=== PATIENT | female | born 1975 | race Caucasian/White ===

== ENCOUNTER → 2016-11-23 | Outpatient (CLI) | payer BC ==
[2016-11-23 16:19] VITALS: BP 116/82; PULSE 82; RESP 16; TEMP 97.6; BMI 36.1
--- NOTE | 2017-01-09 09:38 | PN ---
DATE OF SERVICE: 11/23/2016 CHIEF COMPLAINT: Followup sleeve gastrectomy. HISTORY OF PRESENT ILLNESS: Zoraida Hagen is a 41-year-old female who is status post sleeve gastrectomy on 09/29/2016. She is approximately 2 months out. She is off all her medication regarding to her blood pressure. Her joints are doing well. In fact her persistent tachycardia is completely resolved. At her height of 5 feet 4 inches her ideal body weight is 144 pounds. Her initial weight was 260 pounds. Today she comes in weighing 213 pounds. She has lost 47 pounds in 2 months. Percent excess weight loss is 41%. Body mass index is reduced from 44.7 down to 36.6. Total BMI point reduction is 8.1. PHYSICAL EXAM: VITAL SIGNS: 97.6, 82, 16, 116/82, 213 pounds. Body mass index 36.6. CARDIOVASCULAR: Regular rate and rhythm. ABDOMEN: Abdomen is soft, nontender, nondistended. No hernias. GENERAL: Well-developed female in no acute distress. HEENT: No scleral icterus. Extraocular movements grossly intact. NECK: Supple without lymphadenopathy. CHEST: Nonlabored respirations with equal bilateral excursions. MUSCULOSKELETAL: No acute clubbing, cyanosis or edema. Lumbar tenderness noted. NEURO: No focal or lateralizing signs. Cranial nerves 2-12 grossly intact. PSYCH: Appropriate affect. Alert and oriented to person, place and time. ASSESSMENT: 1. Morbid obesity due to excess calories. 2. Body mass index reduced from 44.7 down to 36.6. 3. Status post sleeve gastrectomy. 4. Supraventricular tachycardia, resolved. 5. Hypertensive heart disease, resolved. 6. Gastroesophageal reflux disease, resolved. PLAN: 1. Overall, she is doing extremely well on her 2 month visit. 2. Recommend bariatric metabolic panel at least 3 months out. 3. Recommend followup in approximately 3 to 4 months postop. [facility]
== END | disposition home or self-care (01) ==
LOC: BARWHC3 15:37
PROVIDERS: ATTEND Surgery Plastic and Reconstructive Surgery
DX: Z48.815 Encounter for surgical aftercare following surgery on the digestive system (principal); Z71.3 Dietary counseling and surveillance; E66.01 Morbid (severe) obesity due to excess calories; E21.1 Secondary hyperparathyroidism, not elsewhere classified; E86.1 Hypovolemia; D50.8 Other iron deficiency anemias; E44.0 Moderate protein-calorie malnutrition; E55.9 Vitamin D deficiency, unspecified; K74.1 Hepatic sclerosis; N19 Unspecified kidney failure; K50.90 Crohn's disease, unspecified, without complications; Z98.84 Bariatric surgery status; Z68.36 Body mass index [BMI] 36.0-36.9, adult
CPT/HCPCS: 99211

== ENCOUNTER → 2016-11-25 | Outpatient (CLI) | payer BC ==
[2016-11-25 08:07] LABS: Basophils % (A) 1 %; CH 28.2; CHCM 32.6; Eosinophils # (A) 0.2 k/uL (0-0.7); Eosinophils % (A) 3 %; HCT 43.1 % (34.0-46.0); HDW 2.66; HGB 13.8 gm/dL (11.4-16.0); Luc # (Auto) 0.16; Luc % (Auto) 2; Lymphocytes # (A) 2.1 k/uL (1.0-4.8); Lymphocytes % (A) 33 %; MCH 27.8 pg (25.0-35.0); MCHC 31.9 g/dL (31.0-37.0); Mean Platelet Volume 9.9; Monocytes # (A) 0.3 k/uL (0-1.0); Monocytes % (A) 5 %; Neutrophils # (A) 3.8 k/uL (1.3-7.7); Neutrophils % (A) 58 %; RBC 4.95 m/uL (3.80-5.40); RDW 13.6 % (11.5-15.5); WBC 6.6 k/uL (3.8-10.6); WBC (Perox) 6.97
[2016-11-25 08:12] LABS: Partial Thromboplastin Time 26.2 sec (22.0-30.0); Prothrombin Time 10.5 sec (9.0-12.0)
[2016-11-25 11:10] LABS: ALT 60 U/L (9-52); AST 33 U/L (14-36); Alkaline Phosphatase 87 U/L (38-126); Anion Gap 9 mmol/L; Blood Urea Nitrogen 15 mg/dL (7-17); Calcium 9.3 mg/dL (8.4-10.2); Carbon Dioxide 29 mmol/L (22-30); Chloride 103 mmol/L (98-107); Cholesterol 176 mg/dL (<200); Glucose 104 mg/dL (74-99); HDL Cholesterol 46 mg/dL (40-60); Iron 51 ug/dL (37-170); Magnesium 1.8 mg/dL (1.6-2.3); Non-African American GFR(MDRD) >60 (>60 ml/min/1.73 sqM); Phosphorous 4.5 mg/dL (2.5-4.5); Potassium 3.7 mmol/L (3.5-5.1); Sodium 141 mmol/L (137-145); Total Bilirubin 0.7 mg/dL (0.2-1.3); Total Protein 6.9 g/dL (6.3-8.2); Triglycerides 128 mg/dL (<150)
[2016-11-25 11:21] LABS: % Iron Saturation 15.7 % (20-50); Prealbumin 14 mg/dL (18-36); Total Iron Binding Capacity 324 ug/dL (265-497)
[2016-11-25 12:20] LABS: Vitamin B12 445 pg/mL (239-931)
[2016-11-25 13:53] LABS: Hemoglobin A1C 6.5 % (4.2-6.1)
[2016-11-30 14:09] LABS: Selenium 83 mcg/L (63-160)
== END | disposition home or self-care (01) ==
LOC: LABWHC1 07:03
PROVIDERS: ATTEND Surgery Plastic and Reconstructive Surgery
DX: E66.01 Morbid (severe) obesity due to excess calories (principal); E21.1 Secondary hyperparathyroidism, not elsewhere classified; E89.1 Postprocedural hypoinsulinemia; D50.8 Other iron deficiency anemias; K90.89 Other intestinal malabsorption; E44.0 Moderate protein-calorie malnutrition; E55.9 Vitamin D deficiency, unspecified; K74.1 Hepatic sclerosis; N19 Unspecified kidney failure; K50.90 Crohn's disease, unspecified, without complications
CPT/HCPCS: 36415; 80053; 80061; 82306; 82525; 82607; 82728; 82746; 83036; 83540; 83550; 83735; 83970; 84100; 84134; 84255; 84425; 84443; 84590; 84630; 85025; 85610; 85730

== ENCOUNTER → 2017-01-11 | Outpatient (CLI) | payer BC ==
[2017-01-11 16:35] VITALS: BP 100/62; PULSE 71; TEMP 98.1; BMI 34.4
--- NOTE | 2017-02-13 17:18 | P.PN ---
Progress Note - Text DATE OF SERVICE: 01/11/2017. CHIEF COMPLAINT: Bariatric assessment. HISTORY OF PRESENT ILLNESS: Zoraida Hagen is a 41-year-old female who is status post sleeve gastrectomy on 10/04/2016. She is now a little over 3 months out. For her height of 5 feet 4 inches, her ideal body weight is 144 pounds. Her highest weight was 358 pounds. Today she comes in weighing 200 pounds. She has lost 58 pound in a little over 3 months. Percent excess weight loss is 61%. She has lost another 13 pounds since her last visit a month ago. Body mass index is reduced from 44.4 down to 34.4. Total BMI point reduction is 10 points. She is now 56 pounds overweight. She denies any increased gastroesophageal reflux disease. She reports moderate amount of energy. PAST MEDICAL HISTORY: 1. Depression. 2. Morbid obesity. 3. Vitamin D deficiency. 4. Anxiety. 5. Restless leg syndrome. 6. Osteoarthritis of the bilateral hips. 7. Osteoarthritis of the bilateral knees. 8. Anxiety and depression. 9. Sleeve gastrectomy. 10. Diabetes type II, non-insulin dependent. PAST SURGICAL HISTORY: 1. Umbilical hernia repair. 2. . 3. Cholecystectomy. 4. Tubal ligation. 5. D and C. 6. Cyst removal from the vagina. 7. Status post sleeve gastrectomy. MEDICATIONS: 1. Calcium. 2. Multivitamin. 3. Effexor. 4. Mirapex. 5. Omeprazole. 6. Zyrtec. 7. Alprazolam. ALLERGIES: ASPIRIN. SOCIAL HISTORY: Daily smoker. FAMILY HISTORY: Denies any esophageal, stomach or colon cancer. Pertinent for myocardial infarction, including lung cancer. REVIEW OF SYSTEMS: CONSTITUTIONAL: [place] body weight of 144 pounds. Highest weight of 268 pounds. She has lost 58 pounds. Percent excess weight loss is 51%. MUSCULOSKELETAL: She reports improvement of her diffuse joint pain, including of the lumbar back and bilateral hips and knees. RESPIRATORY: Reports improvement of obstructive sleep apnea. GASTROINTESTINAL: She reports no moderate gastroesophageal reflux disease. CARDIOVASCULAR: She has resolution of her previous tachycardia, which is now resolved. HEENT: Denies any troubles with her vision or hearing. No dysphagia. ENDOCRINE: No reports of thyroid disorder. Has diabetes. NEURO: No reports of stroke or seizure disorders. PSYCH: History of depression, including anxiety. HEMATOLOGIC: No reports of easy bruising or bleeding. PHYSICAL EXAM: VITAL SIGNS: 98.1, 71, 100/62; 5 feet 4 inches, 200 pounds. Body mass index of 34.4. ABDOMEN: Soft, nontender, nondistended. No palpable incisional hernias. GENERAL: Well-developed female in no acute distress. CARDIOVASCULAR: Regular rate and regular rhythm. HEENT: No scleral icterus. Extraocular movements grossly intact. NECK: Supple without lymphadenopathy. CHEST: Nonlabored respirations with equal bilateral excursions. MUSCULOSKELETAL: No acute clubbing, cyanosis or edema. Lumbar tenderness noted. NEURO: No focal or lateralizing signs. Cranial nerves 2-12 grossly intact. PSYCH: Appropriate affect. Alert and oriented to person, place and time. LABS: Bariatric labs reviewed with hemoglobin normal at 13.8. Glucose was slightly elevated at 104. Hemoglobin A1c was elevated at 6.5. However, improved from 7.8. Percent iron saturation is low at 15.7. ALT elevated at 60. Prealbumin was low at 14. LDL was elevated at 104. Vitamin A was very low at 27. ASSESSMENT: 1. Morbid obesity due to excess calories. 2. Body mass index reduced from 44.4 down to 34.4. 3. Diabetes type 2, [id number] improved. 4. Elevated liver enzymes, ALT. 5. Hypertriglyceridemia. 6. Vitamin D deficiency. 7. Tobacco use, in remission. 8. Osteoarthritis of the lumbar area, secondary to morbid obesity, improved. 9. Osteoarthritis of the bilateral hips, secondary to morbid obesity, improved. 10. Osteoarthritis of the knees, secondary to morbid obesity, improved. 11. Dietary surveillance and counseling. 12. Obstructive sleep apnea, resolved. 13. Anxiety. 14. Depression. 15. Status post sleeve gastrectomy. 16. Tachycardia resolved. 17. Vitamin A deficiency. 18. Gastroesophageal reflux disease. PLAN: 1. She reports that most of her symptoms of osteoarthritis is moderately improved. 2. Recommend vitamin A supplement 8000 units daily. 3. Goal protein intake of over 70 grams was advised daily. 4. Hemoglobin A1C is improving and with her high protein, low caloric diet we will closely monitor her hemoglobin A1c. At this point, she discontinued all forms of diabetic medications. 5. Recommend bariatric metabolic panel ideally at her 6 month loki; otherwise for March 2017. She was advised to follow-up sooner should she have any further issues. 6. Omeprazole 40 mg daily was continued.
== END | disposition home or self-care (01) ==
LOC: BARWHC3 15:19
PROVIDERS: ATTEND Surgery Plastic and Reconstructive Surgery
DX: Z48.815 Encounter for surgical aftercare following surgery on the digestive system (principal); E66.01 Morbid (severe) obesity due to excess calories; Z68.34 Body mass index [BMI] 34.0-34.9, adult; Z71.3 Dietary counseling and surveillance; E11.9 Type 2 diabetes mellitus without complications; R74.8 Abnormal levels of other serum enzymes; E78.1 Pure hyperglyceridemia; E55.9 Vitamin D deficiency, unspecified; F17.200 Nicotine dependence, unspecified, uncomplicated; M47.896 Other spondylosis, lumbar region; M16.0 Bilateral primary osteoarthritis of hip; M17.0 Bilateral primary osteoarthritis of knee; F41.9 Anxiety disorder, unspecified; F32.9 Major depressive disorder, single episode, unspecified; E50.9 Vitamin A deficiency, unspecified; K21.9 Gastro-esophageal reflux disease without esophagitis; Z98.84 Bariatric surgery status; Z88.8 Allergy status to other drugs, medicaments and biological substances; Z79.899 Other long term (current) drug therapy
CPT/HCPCS: 97803; 99211

== ENCOUNTER → 2017-03-22 | Outpatient (CLI) | payer BC ==
[2017-03-22 16:45] VITALS: BP 123/79; PULSE 88; BMI 31.4
== END | disposition home or self-care (01) ==
LOC: BARWHC3 15:21
PROVIDERS: ATTEND Surgery Plastic and Reconstructive Surgery
DX: Z48.815 Encounter for surgical aftercare following surgery on the digestive system (principal); Z71.3 Dietary counseling and surveillance; E66.01 Morbid (severe) obesity due to excess calories; Z68.31 Body mass index [BMI] 31.0-31.9, adult; Z98.84 Bariatric surgery status; E21.1 Secondary hyperparathyroidism, not elsewhere classified; E89.1 Postprocedural hypoinsulinemia; D50.8 Other iron deficiency anemias; E44.1 Mild protein-calorie malnutrition; E55.9 Vitamin D deficiency, unspecified; K74.1 Hepatic sclerosis; T56.894A Toxic effect of other metals, undetermined, initial encounter; K90.9 Intestinal malabsorption, unspecified
CPT/HCPCS: 97803; 99211

== ENCOUNTER → 2017-03-29 | Outpatient (CLI) | payer BC ==
[2017-03-29 08:10] LABS: CH 28.5; CHCM 32.6; HDW 2.33; HGB 13.4 gm/dL (11.4-16.0); MCH 27.9 pg (25.0-35.0); MCHC 31.8 g/dL (31.0-37.0); MCV 87.8 fL (80.0-100.0); Mean Platelet Volume 8.7; RBC 4.79 m/uL (3.80-5.40); RDW 13.2 % (11.5-15.5); WBC 7.3 k/uL (3.8-10.6)
[2017-03-29 08:19] LABS: Partial Thromboplastin Time 24.7 sec (22.0-30.0); Prothrombin Time 10.3 sec (9.0-12.0)
[2017-03-29 10:49] LABS: ALT 33 U/L (9-52); AST 17 U/L (14-36); Alkaline Phosphatase 81 U/L (38-126); Anion Gap 10 mmol/L; Blood Urea Nitrogen 15 mg/dL (7-17); Calcium 9.1 mg/dL (8.4-10.2); Carbon Dioxide 25 mmol/L (22-30); Chloride 107 mmol/L (98-107); Cholesterol 191 mg/dL (<200); Glucose 100 mg/dL (74-99); HDL Cholesterol 51 mg/dL (40-60); Iron 64 ug/dL (37-170); Magnesium 1.9 mg/dL (1.6-2.3); Non-African American GFR(MDRD) >60 (>60 ml/min/1.73 sqM); Potassium 4.1 mmol/L (3.5-5.1); Sodium 142 mmol/L (137-145); Total Bilirubin 0.5 mg/dL (0.2-1.3); Total Protein 6.8 g/dL (6.3-8.2); Triglycerides 116 mg/dL (<150)
[2017-03-29 11:02] LABS: % Iron Saturation 17.3 % (20-50); Prealbumin 18 mg/dL (18-36); Total Iron Binding Capacity 369 ug/dL (265-497)
[2017-03-29 11:59] LABS: Vitamin B12 253 pg/mL (239-931)
[2017-04-05 13:26] LABS: Selenium 128 mcg/L (63-160)
== END | disposition home or self-care (01) ==
LOC: LABWHC1 07:27
PROVIDERS: ATTEND Surgery Plastic and Reconstructive Surgery
DX: E89.1 Postprocedural hypoinsulinemia (principal); D50.8 Other iron deficiency anemias; K90.89 Other intestinal malabsorption; E55.9 Vitamin D deficiency, unspecified; K74.1 Hepatic sclerosis; T56.894A Toxic effect of other metals, undetermined, initial encounter; R63.3 Feeding difficulties; Z98.890 Other specified postprocedural states
CPT/HCPCS: 36415; 80053; 80061; 82306; 82525; 82607; 82728; 82746; 83036; 83540; 83550; 83735; 83970; 84100; 84134; 84255; 84425; 84443; 84590; 84630; 85027; 85610; 85730

== ENCOUNTER → 2017-06-15 | Outpatient (CLI) | payer BC ==
[2017-06-15 10:57] VITALS: BP 136/85; PULSE 94; RESP 16; BMI 28.8
--- NOTE | 2017-07-08 22:06 | P.PN ---
Progress Note - Text DATE OF SERVICE: 06/15/2017. CHIEF COMPLAINT: Bariatric assessment. HISTORY OF PRESENT ILLNESS: Zoraida Hagen is a 4-1year-[age] female who is status post sleeve gastrectomy on 10/04/2016. She is now 9 months out. For her height of 5 feet 4 inches, her ideal body weight is 144 pounds. Her highest weight was 258 pounds. Today she comes in weighing 170 pounds. She has lost 88 pound lifetime. She lost 13 pounds in 3 months. Percent excess weight loss is 78 %. Body mass index is reduced from 44.4 down to 29.2. She is 26 pounds overweight. Her main concern includes redness along her abdomen from panniculitis. She denies any epigastric abdominal pain. She is tolerating diet. No reports of dysphagia. She is also complaining of moderate scan along her bilateral arms and legs. PAST MEDICAL HISTORY: 1. Depression. 2. Morbid obesity, resolved. 3. Vitamin D deficiency. 4. Anxiety. 5. Restless leg syndrome. 6. Osteoarthritis of the bilateral hips, improved. 7. Osteoarthritis of the bilateral knees, improved. 8. Anxiety and depression. 9. Diabetes type II, non-insulin dependent, improved. PAST SURGICAL HISTORY: 1. Umbilical hernia repair. 2. . 3. Cholecystectomy. 4. Tubal ligation. 5. D and C. 6. Cyst removal from the vagina. 7. Status post sleeve gastrectomy. MEDICATIONS: 1. Calcium. 2. Multivitamin. 3. Effexor. 4. Mirapex. 5. Omeprazole. 6. Zyrtec. 7. Alprazolam. ALLERGIES: ASPIRIN. SOCIAL HISTORY: Daily smoker. FAMILY HISTORY: Denies any esophageal, stomach or colon cancer. Pertinent for myocardial infarction, including lung cancer. REVIEW OF SYSTEMS: CONSTITUTIONAL: For her height of 5 feet 4 inches, her ideal body weight is 144 pounds. Her highest weight was 258 pounds. Today she comes in weighing 170 pounds. She has lost 88 pound lifetime. She lost 13 pounds in 3 months. Percent excess weight loss is 78 %. Body mass index is reduced from 44.4 down to 29.2. She is 26 pounds overweight. MUSCULOSKELETAL: She reports improvement of her diffuse joint pain, including of the lumbar back and bilateral hips and knees. RESPIRATORY: Reports improvement of obstructive sleep apnea. GASTROINTESTINAL: She reports no moderate gastroesophageal reflux disease. CARDIOVASCULAR: She has resolution of her previous tachycardia, which is now resolved. HEENT: Denies any troubles with her vision or hearing. No dysphagia. ENDOCRINE: No reports of thyroid disorder. Has diabetes, now improved. NEURO: No reports of stroke or seizure disorders. PSYCH: History of depression, including anxiety. HEMATOLOGIC: No reports of easy bruising or bleeding. PHYSICAL EXAM: VITAL SIGNS: 5 feet 4 inches, 170 pounds. Body mass index of 29.2. Vital Signs Temp Pulse 94 06/15/17 10:41 Resp 16 06/15/17 10:41 BP 136/85 06/15/17 10:41 Pulse Ox ABDOMEN: Soft, nondistended. No palpable incisional hernias. Pannus of 5-10 pounds. Pannus hangs over pubis over 7 cm with hyperemia consistent with panniculitis. GENERAL: Well-developed female in no acute distress. CARDIOVASCULAR: Regular rate and regular rhythm. HEENT: No scleral icterus. Extraocular movements grossly intact. NECK: Supple without lymphadenopathy. CHEST: Nonlabored respirations with equal bilateral excursions. MUSCULOSKELETAL: No acute clubbing, cyanosis or edema. Skin elastosis of the bilateral arms and thighs. NEURO: No focal or lateralizing signs. Cranial nerves 2-12 grossly intact. PSYCH: Appropriate affect. Alert and oriented to person, place and time. SKIN: Well perfused. Good skin turgor. ASSESSMENT: 1. Morbid obesity due to excess calories. 2. Body mass index reduced from 44.4 down to 29.2. 3. Diabetes type 2, [id number] improved. 4. Elevated liver enzymes, ALT, resolved. 5. Hypertriglyceridemia, resolved. 6. Vitamin D deficiency. 7. Tobacco use. 8. Osteoarthritis of the lumbar area, secondary to morbid obesity, improved. 9. Osteoarthritis of the bilateral hips, secondary to morbid obesity, improved. 10. Osteoarthritis of the knees, secondary to morbid obesity, improved. 11. Dietary surveillance and counseling. 12. Obstructive sleep apnea, resolved. 13. Anxiety. 14. Depression. 15. Status post sleeve gastrectomy. 16. Tachycardia resolved. 17. Vitamin A deficiency. 18. Gastroesophageal reflux disease, resolved. 19. Panniculitis with skin elastosis of the arms or legs. PLAN: 1. Recommend bariatric labs she's 9 months out. 2. Recommend treatment from panniculitis with prescribed medicated powders. 3. She is near her goal of 100 pound weight loss. Recommend dietary education including continue with food journal. 4. Follow-up at 1 year anniversary, September 2017.
== END | disposition home or self-care (01) ==
LOC: BARWHC3 10:01
PROVIDERS: ATTEND Surgery Plastic and Reconstructive Surgery
DX: Z48.815 Encounter for surgical aftercare following surgery on the digestive system (principal); E66.01 Morbid (severe) obesity due to excess calories; E11.9 Type 2 diabetes mellitus without complications; E55.9 Vitamin D deficiency, unspecified; M47.816 Spondylosis without myelopathy or radiculopathy, lumbar region; M16.0 Bilateral primary osteoarthritis of hip; M17.0 Bilateral primary osteoarthritis of knee; F41.9 Anxiety disorder, unspecified; F32.9 Major depressive disorder, single episode, unspecified; E50.9 Vitamin A deficiency, unspecified; E21.1 Secondary hyperparathyroidism, not elsewhere classified; D50.9 Iron deficiency anemia, unspecified; E44.0 Moderate protein-calorie malnutrition; K74.1 Hepatic sclerosis; N19 Unspecified kidney failure; K50.90 Crohn's disease, unspecified, without complications; F17.200 Nicotine dependence, unspecified, uncomplicated; M79.3 Panniculitis, unspecified; Z79.899 Other long term (current) drug therapy; Z88.6 Allergy status to analgesic agent; Z98.84 Bariatric surgery status
CPT/HCPCS: 97803; 99211

== ENCOUNTER 2017-06-24 23:26 | Observation (INO) | payer BC ==
[2017-06-25] MEDS ORDERED: SODIUM CHLORIDE 0.9% 1,000 ML IV STA (00:03)
[2017-06-25 00:12] LABS: Basophils # (A) 0.1 k/uL (0-0.2); Basophils % (A) 1 %; CH 27.9; CHCM 33.3; Eosinophils # (A) 0.1 k/uL (0-0.7); Eosinophils % (A) 1 %; HCT 42.1 % (34.0-46.0); Luc # (Auto) 0.19; Luc % (Auto) 2; Lymphocytes % (A) 33 %; MCH 28.1 pg (25.0-35.0); MCHC 33.3 g/dL (31.0-37.0); MCV 84.3 fL (80.0-100.0); Mean Platelet Volume 7.9; Monocytes # (A) 0.5 k/uL (0-1.0); Monocytes % (A) 5 %; Neutrophils # (A) 5.3 k/uL (1.3-7.7); Neutrophils % (A) 58 %; RDW 13.7 % (11.5-15.5); WBC 9.1 k/uL (3.8-10.6); WBC (Perox) 9.49
[2017-06-25 00:21] LABS: ALT 37 U/L (9-52); AST 16 U/L (14-36); Alkaline Phosphatase 82 U/L (38-126); Anion Gap 10 mmol/L; Blood Urea Nitrogen 15 mg/dL (7-17); Calcium 8.9 mg/dL (8.4-10.2); Carbon Dioxide 23 mmol/L (22-30); Chloride 105 mmol/L (98-107); Glucose 91 mg/dL (74-99); Magnesium 1.8 mg/dL (1.6-2.3); Non-African American GFR(MDRD) >60 (>60 ml/min/1.73 sqM); Potassium 3.9 mmol/L (3.5-5.1); Sodium 138 mmol/L (137-145); Total Bilirubin 0.3 mg/dL (0.2-1.3); Total Protein 6.9 g/dL (6.3-8.2)
--- NOTE | 2017-06-25 00:32 | XR ---
EXAM: XR Chest, 2 Views CLINICAL HISTORY: Reason: Chest Pain. Left arm pain and numbness. TECHNIQUE: Frontal and lateral views of the chest. COMPARISON: 12/15/15 FINDINGS: Lungs: Unremarkable. No consolidation. Pleural space: Unremarkable. No pneumothorax. Heart: Unremarkable. No cardiomegaly. Mediastinum: Unremarkable. Bones/joints: Unremarkable. IMPRESSION: Normal chest x-rays.
[2017-06-25 00:34] LABS: Partial Thromboplastin Time 24.9 sec (22.0-30.0); Prothrombin Time 10.4 sec (9.0-12.0)
--- NOTE | 2017-06-25 00:43 | ED ---
General Adult HPI - General Chief complaint: Extremity Problem,Nontraumatic Stated complaint: pain and numbness in left arm; difficulty swallowi Time Seen by Provider: 06/24/17 23:44 Source: patient, RN notes reviewed, old records reviewed Mode of arrival: ambulatory Limitations: no limitations - History of Present Illness Initial comments: This is a 42-year-old female night. Patient's coming in for evaluation of chest pain. Patient has nonspecific chest. At this time. She had left arm tingling that went up into her shoulder and then into her jaw. This has persisted. No significant diaphoresis mild shortness of breath. No travel history no sick contacts. Patient has history of diabetes no other cardiac risk factors. No cough congestion or fever at this point. No recent travel history or sick contacts - Related Data Home Medications Medication Instructions Recorded Confirmed Pramipexole [Mirapex] 0.125 mg PO HS PRN 03/12/15 06/25/17 ALPRAZolam 0.25 mg PO BID PRN 12/15/15 06/25/17 Venlafaxine HCl ER [Effexor XR] 75 mg PO TID 05/17/16 06/25/17 Calcium Carbonate/Vitamin D3 1 tab PO DAILY 01/11/17 06/25/17 [Calcium 500-Vit D3 600 Tablet] Multivitamin [Multiple Vitamins] 1 tab PO DAILY 03/22/17 06/25/17 Previous Rx's Medication Instructions Recorded Omeprazole 40 mg PO DAILY #90 capsule. 09/30/16 Cetirizine HCl [Zyrtec] 10 mg PO DAILY #30 tab 10/05/16 Allergies Allergy/AdvReac Type Severity Reaction Status Date / Time aspirin AdvReac Unknown Verified 06/25/17 09:07 Review of Systems ROS Statement: Those systems with pertinent positive or pertinent negative responses have been documented in the HPI. ROS Other: All systems not noted in ROS Statement are negative. Past Medical History Past Medical History: Diabetes Mellitus, Sleep Apnea/CPAP/BIPAP Additional Past Medical History / Comment(s): UMBILICAL HERNIA, RESTLESS LEG, HX OF BLOOD DISORDER DX AT AGE 17-not sure what was called, had to do w/ platelets, states was tested @age 26 & didn't have, has never had any problems w /bleeding or clotting w/surgeries, low back pain and bilateral knee pain and left hip stiffness, uses CPAP History of Any Multi-Drug Resistant Organisms: None Reported Past Surgical History: Bariatric Surgery, Section, Cholecystectomy, Hernia Repair, Tubal Ligation Additional Past Surgical History / Comment(s): D&C, cyst removed from R groin, gastric sleeve Past Anesthesia/Blood Transfusion Reactions: No Reported Reaction Past Psychological History: Anxiety, Depression Smoking Status: Former smoker - Past Family History Father Family Medical History: Congestive Heart Failure (CHF), Hypertension Additional Family Medical History / Comment(s): kidney failure Mother Family Medical History: Cancer, Myocardial Infarction ([place]) Additional Family Medical History / Comment(s): LUNG, from cancer General Exam Limitations: no limitations General appearance: alert, in no apparent distress Head exam: Present: atraumatic, normocephalic, normal inspection Eye exam: Present: normal appearance, PERRL, EOMI. Absent: scleral icterus, conjunctival injection, periorbital swelling ENT exam: Present: normal exam, mucous membranes moist Neck exam: Present: normal inspection. Absent: tenderness, meningismus, lymphadenopathy Respiratory exam: Present: normal lung sounds bilaterally. Absent: respiratory distress, wheezes, rales, rhonchi, stridor Cardiovascular Exam: Present: regular rate, normal rhythm, normal heart sounds. Absent: systolic murmur, diastolic murmur, rubs, gallop, clicks GI/Abdominal exam: Present: soft, normal bowel sounds. Absent: distended, tenderness, guarding, rebound, rigid Extremities exam: Present: normal inspection, full ROM, normal capillary refill. Absent: tenderness, pedal edema, joint swelling, calf tenderness Back exam: Present: normal inspection Neurological exam: Present: alert, oriented X3, CN II-XII intact Psychiatric exam: Present: normal affect, normal mood Skin exam: Present: warm, dry, intact, normal color. Absent: rash Course Vital Signs 06/24/17 06/25/17 06/25/17 23:37 01:07 02:31 Temperature 98.6 F 98.1 F 98.9 F Pulse Rate 102 H 99 108 H Pulse Rate [ Pulse Oximetery ] Respiratory 16 18 18 Rate Blood Pressure 140/90 118/72 107/56 Blood Pressure [Left Arm] O2 Sat by Pulse 100 97 98 Oximetry 06/25/17 06/25/17 03:50 03:56 Temperature 98.1 F 98.3 F Pulse Rate 103 H Pulse Rate [ 84 Pulse Oximetery ] Respiratory 18 18 Rate Blood Pressure 113/65 Blood Pressure 104/68 [Left Arm] O2 Sat by Pulse 99 97 Oximetry EKG Findings - EKG Comments: EKG Findings:: EKG shows normal sinus rhythm rate of 91, PA 140, QRS 70, QTc 462 Medical Decision Making - Medical Decision Making 5-year-old female with atypical chest pain. Patient initially QT interval are negative. Patient still feels uncomfortable, concerned for her heart. Patient will be admitted for cardiac observation - Lab Data Result diagrams: 06/25/17 06:32 06/25/17 00:00 Lab Results 06/25/17 06/25/17 06/25/17 Range/Units 00:00 00:00 00:00 WBC 9.1 (3.8-10.6) k/uL RBC 5.00 (3.80-5.40) m/uL Hgb 14.0 (11.4-16.0) gm/dL Hct 42.1 (34.0-46.0) % MCV 84.3 (80.0-100.0) fL MCH 28.1 (25.0-35.0) pg MCHC 33.3 (31.0-37.0) g/dL RDW 13.7 (11.5-15.5) % Plt Count 236 (150-450) k/uL Neutrophils % 58 % Lymphocytes % 33 % Monocytes % 5 % Eosinophils % 1 % Basophils % 1 % Neutrophils # 5.3 (1.3-7.7) k/uL Lymphocytes # 3.0 (1.0-4.8) k/uL Monocytes # 0.5 (0-1.0) k/uL Eosinophils # 0.1 (0-0.7) k/uL Basophils # 0.1 (0-0.2) k/uL PT (9.0-12.0) sec INR (<1.2) APTT (22.0-30.0) sec Sodium 138 (137-145) mmol/L Potassium 3.9 (3.5-5.1) mmol/L Chloride 105 (98-107) mmol/L Carbon Dioxide 23 (22-30) mmol/L Anion Gap 10 mmol/L BUN 15 (7-17) mg/dL Creatinine 0.70 (0.52-1.04) mg/dL Est GFR (MDRD) Af Amer >60 (>60 ml/min/1.73 sqM) Est GFR (MDRD) Non-Af >60 (>60 ml/min/1.73 sqM) Glucose 91 (74-99) mg/dL Calcium 8.9 (8.4-10.2) mg/dL Magnesium 1.8 (1.6-2.3) mg/dL Total Bilirubin 0.3 (0.2-1.3) mg/dL AST 16 (14-36) U/L ALT 37 (9-52) U/L Alkaline Phosphatase 82 (38-126) U/L Total Creatine Kinase 68 (30-135) U/L CK-MB (CK-2) 0.5 (0.0-2.4) ng/mL CK-MB (CK-2) Rel Index 0.7 Troponin I <0.012 (0.000-0.034) ng/mL Total Protein 6.9 (6.3-8.2) g/dL Albumin 3.9 (3.5-5.0) g/dL Lipase 201 (23-300) U/L 06/25/17 Range/Units 00:00 WBC (3.8-10.6) k/uL RBC (3.80-5.40) m/uL Hgb (11.4-16.0) gm/dL Hct (34.0-46.0) % MCV (80.0-100.0) fL MCH (25.0-35.0) pg MCHC (31.0-37.0) g/dL RDW (11.5-15.5) % Plt Count (150-450) k/uL Neutrophils % % Lymphocytes % % Monocytes % % Eosinophils % % Basophils % % Neutrophils # (1.3-7.7) k/uL Lymphocytes # (1.0-4.8) k/uL Monocytes # (0-1.0) k/uL Eosinophils # (0-0.7) k/uL Basophils # (0-0.2) k/uL PT 10.4 (9.0-12.0) sec INR 1.0 (<1.2) APTT 24.9 (22.0-30.0) sec Sodium (137-145) mmol/L Potassium (3.5-5.1) mmol/L Chloride (98-107) mmol/L Carbon Dioxide (22-30) mmol/L Anion Gap mmol/L BUN (7-17) mg/dL Creatinine (0.52-1.04) mg/dL Est GFR (MDRD) Af Amer (>60 ml/min/1.73 sqM) Est GFR (MDRD) Non-Af (>60 ml/min/1.73 sqM) Glucose (74-99) mg/dL Calcium (8.4-10.2) mg/dL Magnesium (1.6-2.3) mg/dL Total Bilirubin (0.2-1.3) mg/dL AST (14-36) U/L ALT (9-52) U/L Alkaline Phosphatase (38-126) U/L Total Creatine Kinase (30-135) U/L CK-MB (CK-2) (0.0-2.4) ng/mL CK-MB (CK-2) Rel Index Troponin I (0.000-0.034) ng/mL Total Protein (6.3-8.2) g/dL Albumin (3.5-5.0) g/dL Lipase (23-300) U/L - Radiology Data Radiology results: report reviewed (Chest x-ray is negative for acute disease), image reviewed Disposition Clinical Impression: Chest pain Disposition: ADMITTED IP TO THIS [facility] Condition: Undetermined
[2017-06-25 00:48] LABS: Creatine Kinase 68 U/L (30-135)
[2017-06-25 01:01] LABS: Creatine Kinase MB 0.5 ng/mL (0.0-2.4); Troponin I <0.012 ng/mL (0.000-0.034)
[2017-06-25] MEDS ORDERED: HEPARIN SODIUM,PORCINE 5,000 UNIT/ML 1 ML VIAL IV PRN (01:43)
[2017-06-25] MEDS ORDERED: NITROGLYCERIN SL TABS 0.4 MG TAB SUBLINGUAL PRN (01:43)
[2017-06-25] MEDS ORDERED: HEPARIN SODIUM,PORCINE 5,000 UNIT/ML 1 ML VIAL IV ONE (01:43)
[2017-06-25] MEDS ORDERED: HEPARIN SODIUM,PORCINE/D5W PMX 25,000 UNIT in DEXTROSE/WATER 1 500ML.BAG IV SCH (01:45)
[2017-06-25 06:53] LABS: Mean Platelet Volume 8.5
[2017-06-25 07:23] LABS: Creatine Kinase 53 U/L (30-135)
[2017-06-25 07:36] LABS: Creatine Kinase MB 0.5 ng/mL (0.0-2.4); Troponin I <0.012 ng/mL (0.000-0.034)
--- NOTE | 2017-06-25 08:38 | P.CRDCN ---
History of Present Illness Consult date: 06/25/17 Chief complaint: Chest discomfort History of present illness: This is a pleasant 42-year-old female patient with a past medical history significant for history of diabetes and smoking presented to the emergency room complaining of chest discomfort. She was in her usual state of health until yesterday when she started experiencing discomfort in the throat as well as left arm tingling. This morning she was experiencing chest discomfort. No associated symptoms of shortness of breath, sweating, dizziness or lightheadedness or syncope. She is not aware of any history of CAD but she had diabetes in the past and it was resolved after she lost weight. She does smoke. She does have fairly significant family history of coronary artery disease Past Medical History Past Medical History: Diabetes Mellitus, GERD/Reflux, Sleep Apnea/CPAP/BIPAP Additional Past Medical History / Comment(s): UMBILICAL HERNIA, RESTLESS LEG, HX OF BLOOD DISORDER DX AT AGE 17-not sure what was called, had to do w/ platelets, states was tested @age 26 & didn't have, has never had any problems w /bleeding or clotting w/surgeries, low back pain and bilateral knee pain and left hip stiffness, uses CPAP History of Any Multi-Drug Resistant Organisms: None Reported Past Surgical History: Bariatric Surgery, Section, Cholecystectomy, Hernia Repair, Tubal Ligation Additional Past Surgical History / Comment(s): D&C, cyst removed from R groin, gastric sleeve Past Anesthesia/Blood Transfusion Reactions: No Reported Reaction Past Psychological History: Anxiety, Bipolar, Depression Smoking Status: Former smoker Past Alcohol Use History: None Reported Additional Past Alcohol Use History / Comment(s): quit smoking 2015, smoked since age of 16 1ppd Past Drug Use History: None Reported - Past Family History Father Family Medical History: Congestive Heart Failure (CHF), Hypertension Additional Family Medical History / Comment(s): kidney failure Mother Family Medical History: Cancer, Myocardial Infarction ([place]) Additional Family Medical History / Comment(s): LUNG, from cancer Medications and Allergies Home Medications Medication Instructions Recorded Confirmed Type Pramipexole [Mirapex] 0.125 mg PO HS PRN 03/12/15 06/25/17 History ALPRAZolam 0.25 mg PO BID PRN 12/15/15 06/25/17 History Venlafaxine HCl ER [Effexor XR] 75 mg PO TID 05/17/16 06/25/17 History Omeprazole 40 mg PO DAILY #90 capsule. 09/30/16 06/25/17 Rx Cetirizine HCl [Zyrtec] 10 mg PO DAILY #30 tab 10/05/16 06/25/17 Rx Calcium Carbonate/Vitamin D3 1 tab PO DAILY 01/11/17 06/25/17 History [Calcium 500-Vit D3 600 Tablet] Multivitamin [Multiple Vitamins] 1 tab PO DAILY 03/22/17 06/25/17 History Allergies Allergy/AdvReac Type Severity Reaction Status Date / Time aspirin AdvReac Unknown Verified 06/25/17 04:04 Physical Exam Vitals: Vital Signs Temp Pulse Pulse Resp BP BP Pulse Ox 06/25/17 08:00 98.4 F 85 16 103/68 96 06/25/17 04:00 18 06/25/17 03:56 98.3 F 103 H 18 113/65 97 06/25/17 03:50 98.1 F 84 18 104/68 99 06/25/17 02:31 98.9 F 108 H 18 107/56 98 06/25/17 01:07 98.1 F 99 18 118/72 97 06/24/17 23:37 98.6 F 102 H 16 140/90 100 Intake and Output 06/24/17 06/25/17 06/25/17 22:59 06:59 14:59 Intake Total 240 Balance 240 Intake: IV 240 Heparin Sodium,Porcine/ 40 D5w Pmx 25,000 unit In Dextrose/Water 1 500ml. bag @ 12 UNITS/KG/HR 18.5 mls/hr IV .Q24H ARLEN Rx#: [id number] Sodium Chloride 0.9% 1, 200 000 ml @ 100 mls/hr IV . Q10H STA Rx#:[id number] Other: Voiding Method Toilet # Voids 1 Weight 77.111 kg - Constitutional General appearance: no acute distress - Respiratory Respiratory: bilateral: CTA - Cardiovascular Rhythm: regular Heart sounds: normal: S1, S2 Results 06/25/17 06:32 06/25/17 00:00 Cardiac Enzymes 06/25/17 06/25/17 06/25/17 Range/Units 00:00 00:00 06:32 AST 16 (14-36) U/L CK-MB (CK-2) 0.5 0.5 (0.0-2.4) ng/mL Troponin I <0.012 <0.012 (0.000-0.034) ng/mL Coagulation 06/25/17 Range/Units 00:00 PT 10.4 (9.0-12.0) sec APTT 24.9 (22.0-30.0) sec CBC 06/25/17 06/25/17 Range/Units 00:00 06:32 WBC 9.1 (3.8-10.6) k/uL RBC 5.00 (3.80-5.40) m/uL Hgb 14.0 (11.4-16.0) gm/dL Hct 42.1 (34.0-46.0) % Plt Count 236 225 (150-450) k/uL Comprehensive Metabolic Panel 06/25/17 Range/Units 00:00 Sodium 138 (137-145) mmol/L Potassium 3.9 (3.5-5.1) mmol/L Chloride 105 (98-107) mmol/L Carbon Dioxide 23 (22-30) mmol/L BUN 15 (7-17) mg/dL Creatinine 0.70 (0.52-1.04) mg/dL Glucose 91 (74-99) mg/dL Calcium 8.9 (8.4-10.2) mg/dL AST 16 (14-36) U/L ALT 37 (9-52) U/L Alkaline Phosphatase 82 (38-126) U/L Total Protein 6.9 (6.3-8.2) g/dL Albumin 3.9 (3.5-5.0) g/dL Current Medications Generic Name Dose Route Start Last Admin Trade Name Freq PRN Reason Stop Dose Admin Aspirin 325 mg 06/26/17 09:00 Aspirin PO DAILY [facility] Atorvastatin Calcium 80 mg 06/25/17 09:00 Lipitor PO DAILY [facility] Heparin Sodium (Porcine) 0 unit 06/25/17 01:43 Heparin IV Q6HR PRN Low PTT Protocol Sodium Chloride 1,000 mls @ 100 mls/hr 06/25/17 00:03 06/25/17 00:19 Saline 0.9% IV 06/25/17 10:02 100 mls/hr .Q10H STA Administration Heparin Sodium/Dextrose 25,000 500 mls @ 18.5 mls/hr 06/25/17 01:45 06/25/17 02:27 unit/ IV Solution IV 12 units/kg/hr .Q24H ARLEN 18.5 mls/hr Protocol Administration 12 UNITS/KG/HR Nitroglycerin 0.4 mg 06/25/17 01:43 Nitrostat SUBLINGUAL Q5M PRN Chest Pain Intake and Output 06/24/17 06/25/17 06/25/17 22:59 06:59 14:59 Intake Total 240 Balance 240 Intake: IV 240 Heparin Sodium,Porcine/ 40 D5w Pmx 25,000 unit In Dextrose/Water 1 500ml. bag @ 12 UNITS/KG/HR 18.5 mls/hr IV .Q24H [facility]EN Rx#: [id number] Sodium Chloride 0.9% 1, 200 000 ml @ 100 mls/hr IV . Q10H STA Rx#:[id number] Other: Voiding Method Toilet # Voids 1 Weight 77.111 kg 06/25/17 06:32 06/25/17 00:00 Assessment and Plan Plan: This is a pleasant 42-year-old female patient who presented to the hospital was atypical chest discomfort and ruled out for acute coronary event. I discussed with the patient the need for stress test but unfortunately over the weekend we don't to stress test. I recommended either the patient will stay here to tomorrow where she can have a stress test done or if she is pain- free she can be discharged home and have the test done as an outpatient.
[2017-06-25] MEDS ORDERED: ATORVASTATIN 80 MG TAB PO SCH (09:00)
[2017-06-25 12:03] VITALS: BP 105/59; PULSE 91; RESP 14; TEMP 98.9
[2017-06-25 12:11] LABS: Creatine Kinase 53 U/L (30-135)
[2017-06-25 12:24] LABS: Creatine Kinase MB 0.3 ng/mL (0.0-2.4); Troponin I <0.012 ng/mL (0.000-0.034)
--- NOTE | 2017-06-25 15:00 | P.DS ---
Providers Date of admission: 06/25/17 01:43 Attending physician: Magan Valentin Consults: 06/25/17 01:43 Consult Physician Urgent Consulting Provider: Gina Patterson Consult Reason/Comments: cp Do you want consulting provider notified?: Yes Primary care physician: Richard Sharif [facility] Course: Please refer to my HPI Patient Condition at Discharge: Undetermined Plan - Discharge Summary New Discharge Prescriptions: No Action Pramipexole [Mirapex] 0.125 mg PO HS PRN PRN Reason: RESTLESS LEG ALPRAZolam 0.25 mg PO BID PRN PRN Reason: Anxiety Venlafaxine HCl ER [Effexor XR] 75 mg PO TID Omeprazole 40 mg PO DAILY #90 capsule. Cetirizine HCl [Zyrtec] 10 mg PO DAILY #30 tab Calcium Carbonate/Vitamin D3 [Calcium 500-Vit D3 600 Tablet] 1 tab PO DAILY Multivitamin [Multiple Vitamins] 1 tab PO DAILY Discharge Medication List Pramipexole [Mirapex] 0.125 mg PO HS PRN 03/12/15 [History] ALPRAZolam 0.25 mg PO BID PRN 12/15/15 [History] Venlafaxine HCl ER [Effexor XR] 75 mg PO TID 05/17/16 [History] Omeprazole 40 mg PO DAILY #90 capsule. 09/30/16 [Rx] Cetirizine HCl [Zyrtec] 10 mg PO DAILY #30 tab 10/05/16 [Rx] Calcium Carbonate/Vitamin D3 [Calcium 500-Vit D3 600 Tablet] 1 tab PO DAILY 02/22 [History] Multivitamin [Multiple Vitamins] 1 tab PO DAILY 03/22/17 [History] Follow up Appointment(s)/Referral(s): Valentín Sharif MD [Primary Care Provider] - 3 Days (Office closed at this time. Call office Monday to make a follow up appointment.) Patient Instructions/Handouts: Chest Pain (GEN) Discharge Disposition: HOME SELF-CARE
--- NOTE | 2017-06-25 15:00 | P.HPIM ---
History of Present Illness Patient is a 42-year-old female current complaints of pain in the left arm worsens with the raising it up patient has musculoskeletal pain mostly appears to be coming from the rotator cuff. Patient was admitted to rule out acute coronary syndromes. Patient pain completely resolved at this point of time discomfort in the left arm is not associated with shortness of breath, diaphoresis nonpruritic in nature. Patient was a valid by cardiology and patient had EKGs and troponins which were negative and patient is cleared for discharge. Review of Systems REVIEW OF SYSTEMS: CONSTITUTIONAL: No fever, no malaise, no fatigue. HEENT: No recent visual problems or hearing problems. Denied any sore throat. CARDIOVASCULAR: No orthopnea, PND, no palpitations, no syncope. PULMONARY: No shortness of breath, no cough, no hemoptysis. GASTROINTESTINAL: No diarrhea, no nausea, no vomiting, no abdominal pain. Normoactive bowel sounds. NEUROLOGICAL: No headaches, no weakness, no numbness. HEMATOLOGICAL: Denies any bleeding or petechiae. GENITOURINARY: Denies any burning micturition, frequency, or urgency. MUSCULOSKELETAL/RHEUMATOLOGICAL: Denies any joint pain, swelling, or any muscle pain. ENDOCRINE: Denies any polyuria or polydipsia. The rest of the 14-point review of systems is negative. Past Medical History Past Medical History: Diabetes Mellitus, GERD/Reflux, Sleep Apnea/CPAP/BIPAP Additional Past Medical History / Comment(s): UMBILICAL HERNIA, RESTLESS LEG, HX OF BLOOD DISORDER DX AT AGE 17-not sure what was called, had to do w/ platelets, states was tested @age 26 & didn't have, has never had any problems w /bleeding or clotting w/surgeries, low back pain and bilateral knee pain and left hip stiffness, uses CPAP History of Any Multi-Drug Resistant Organisms: None Reported Past Surgical History: Bariatric Surgery, Section, Cholecystectomy, Hernia Repair, Tubal Ligation Additional Past Surgical History / Comment(s): D&C, cyst removed from R groin, gastric sleeve Past Anesthesia/Blood Transfusion Reactions: No Reported Reaction Past Psychological History: Anxiety, Bipolar, Depression Smoking Status: Former smoker Past Alcohol Use History: None Reported Additional Past Alcohol Use History / Comment(s): quit smoking 2015, smoked since age of 16 1ppd Past Drug Use History: None Reported - Past Family History Father Family Medical History: Congestive Heart Failure (CHF), Hypertension Additional Family Medical History / Comment(s): kidney failure Mother Family Medical History: Cancer, Myocardial Infarction ([place]) Additional Family Medical History / Comment(s): LUNG, from cancer Medications and Allergies Home Medications Medication Instructions Recorded Confirmed Type Pramipexole [Mirapex] 0.125 mg PO HS PRN 03/12/15 06/25/17 History ALPRAZolam 0.25 mg PO BID PRN 12/15/15 06/25/17 History Venlafaxine HCl ER [Effexor XR] 75 mg PO TID 05/17/16 06/25/17 History Omeprazole 40 mg PO DAILY #90 capsule. 09/30/16 06/25/17 Rx Cetirizine HCl [Zyrtec] 10 mg PO DAILY #30 tab 10/05/16 06/25/17 Rx Calcium Carbonate/Vitamin D3 1 tab PO DAILY 01/11/17 06/25/17 History [Calcium 500-Vit D3 600 Tablet] Multivitamin [Multiple Vitamins] 1 tab PO DAILY 03/22/17 06/25/17 History Allergies Allergy/AdvReac Type Severity Reaction Status Date / Time aspirin AdvReac Unknown Verified 06/25/17 09:07 Physical Exam Vitals: Vital Signs Temp Pulse Pulse Resp BP BP Pulse Ox 06/25/17 12:00 98.9 F 91 14 105/59 97 06/25/17 08:00 98.4 F 85 16 103/68 96 06/25/17 04:00 18 06/25/17 03:56 98.3 F 103 H 18 113/65 97 06/25/17 03:50 98.1 F 84 18 104/68 99 06/25/17 02:31 98.9 F 108 H 18 107/56 98 06/25/17 01:07 98.1 F 99 18 118/72 97 06/24/17 23:37 98.6 F 102 H 16 140/90 100 Intake and Output 06/24/17 06/25/17 06/25/17 22:59 06:59 14:59 Intake Total 240 Balance 240 Intake: IV 240 Heparin Sodium,Porcine/ 40 D5w Pmx 25,000 unit In Dextrose/Water 1 500ml. bag @ 12 UNITS/KG/HR 18.5 mls/hr IV .Q24H ARLEN Rx#: [id number] Sodium Chloride 0.9% 1, 200 000 ml @ 100 mls/hr IV . Q10H STA Rx#:[id number] Other: Voiding Method Toilet Toilet # Voids 1 Weight 77.111 kg PHYSICAL EXAMINATION: GENERAL: The patient is alert and oriented x3, not in any acute distress. Well developed, well nourished. HEENT: Pupils are round and equally reacting to light. EOMI. No scleral icterus. No conjunctival pallor. Normocephalic, atraumatic. No pharyngeal erythema. No thyromegaly. CARDIOVASCULAR: S1 and S2 present. No murmurs, rubs, or gallops. PULMONARY: Chest is clear to auscultation, no wheezing or crackles. ABDOMEN: Soft, nontender, nondistended, normoactive bowel sounds. No palpable organomegaly. MUSCULOSKELETAL: No joint swelling or deformity. EXTREMITIES: No cyanosis, clubbing, or pedal edema. NEUROLOGICAL: Gross neurological examination did not reveal any focal deficits. SKIN: No rashes. Results CBC & Chem 7: 06/25/17 06:32 06/25/17 00:00 Thrombosis Risk Factor Assmnt - Choose All That Apply Any of the Below Risk Factors Present?: Yes Each Factor Represents 1 point: Age 41-60 years, Obesity (BMI >25), Varicose veins Other Risk Factors: No Other congenital or acquired thrombophilia - If yes, enter type in comment: No Thrombosis Risk Factor Assessment Total Risk Factor Score: 3 Thrombosis Risk Factor Assessment Level: Moderate Risk Assessment and Plan Plan: #1 chest pain: Musculoskeletal nature rule out acute coronary syndromes and unstable angina and patient will be discharged today. Patient was asked to use heating pad if she continues to have pain will need to see orthopedic surgeon as an outpatient although her pain completely resolved at this point of time. #2 depression: For which patient uses Effexor which will be continued. #3 gastroesophageal reflux disease. #4 obstructive sleep apnea For above-mentioned chronic medical problems patient will continue her home medications.
[2017-06-26] MEDS ORDERED: ASPIRIN 325 MG TAB PO SCH (09:00)
== END 2017-06-25 13:24 | disposition home or self-care (01) ==
LOC: EC 23:26 → 3SUR 06-25 01:43
PROVIDERS: ADMIT Hospitalist; ATTEND Hospitalist
DX: R07.89 Other chest pain (principal); R07.0 Pain in throat; R20.2 Paresthesia of skin; R20.0 Anesthesia of skin; R13.10 Dysphagia, unspecified; F31.9 Bipolar disorder, unspecified; K21.9 Gastro-esophageal reflux disease without esophagitis; Z99.89 Dependence on other enabling machines and devices; G47.33 Obstructive sleep apnea (adult) (pediatric); G25.81 Restless legs syndrome; F41.9 Anxiety disorder, unspecified; Z79.899 Other long term (current) drug therapy; Z88.6 Allergy status to analgesic agent; Z87.891 Personal history of nicotine dependence; Z82.49 Family history of ischemic heart disease and other diseases of the circulatory system; M79.602 Pain in left arm; E66.9 Obesity, unspecified; Z68.29 Body mass index [BMI] 29.0-29.9, adult
CPT/HCPCS: 96361 ×2; 96376; 96366; 99285; 36415; 93005; 80053; 82550; 82553; 83690; 83735; 84484; 85025; 85049; 85610; 85730; 71020; 96365; G0378; J1644 ×2

== ENCOUNTER → 2017-12-18 | Outpatient (CLI) | payer BC ==
[2017-12-19 01:18] LABS: Hepatitis C IgG Antibody Non-Reactive (Non-Reactive)
[2017-12-19 01:39] LABS: HIV AB P24 Non-Reactive (Non-Reactive); HIV P24 AG Non-Reactive (Non-Reactive)
[2017-12-19 16:07] LABS: C. trachomatis,PCR Negative (Neg,Equiv); Chlamydia trachomatis Source Urine; N. gonorrhoeae,PCR Negative (Neg,Equiv); Neisseria Source Urine
[2017-12-20 05:06] LABS: Herpes simplex I and/or II IgM 0.7 INDEX (<=0.90); Herpes simplex IgG I Ab 28.3 (< or = 0.90); Herpes simplex IgG II Ab 0.21 (< or = 0.90)
== END | disposition home or self-care (01) ==
LOC: LABWHC1 16:51
PROVIDERS: ATTEND Family Medicine
DX: Z20.2 Contact with and (suspected) exposure to infections with a predominantly sexual mode of transmission (principal)
CPT/HCPCS: 36415; 86694; 86695; 86696; 86780; 86803; 87340; 87390; 87491; 87591

== ENCOUNTER → 2019-05-31 | Outpatient (CLI) | payer OTHER ==
--- NOTE | 2019-06-03 14:58 | MM ---
Reason for exam: screening (asymptomatic). Last mammogram was performed 3 years and 3 months ago. Physical Findings: A clinical breast exam by your physician is recommended on an annual basis and results should be correlated with mammographic findings. MG Screening Mammo w CAD Bilateral CC and MLO view(s) were taken. Prior study comparison: February 25, 2016, mammogram. The breast tissue is extremely dense which could obscure a lesion on mammography. No significant changes when compared with prior studies. ASSESSMENT: Benign, BI-RAD 2 RECOMMENDATION: Routine screening mammogram of both breasts in 1 year.
== END | disposition home or self-care (01) ==
LOC: RADMAMWWP 11:18
PROVIDERS: ATTEND Family Medicine
DX: Z12.31 Encounter for screening mammogram for malignant neoplasm of breast (principal)
CPT/HCPCS: 77067

== ENCOUNTER 2020-04-13 22:50 | Emergency (ER) | payer OTHER ==
--- NOTE | 2020-04-13 23:16 | ED ---
Psych HPI - General Chief Complaint: Psychiatric Symptoms Stated Complaint: Mental health Time Seen by Provider: 04/13/20 23:02 Source: patient Mode of arrival: ambulatory - History of Present Illness Initial Comments: This patient is a 45-year-old woman who presents to have evaluation for depression with suicidal ideation. The patient states she has been feeling somewhat depressed intimately going back years, but over the past number days her mood is worsened and she is having persistent thoughts of taking her life. She states she has lot of shooting herself or cutting her wrists. The patient has been taking some antianxiety medication from her primary physician but s tates it is not doing much for her. She denies hallucinations or homicidal ideation. MD Complaint: suicidal ideation, feels depressed -: year(s) Associated Psychiatric Symptoms: depression, suicidal ideation History of same: Yes Quality: getting worse Improves With: none Worsens With: none Associated Symptoms: denies other symptoms - Related Data Home Medications Medication Instructions Recorded Confirmed ALPRAZolam 0.25 mg PO QID PRN 12/15/15 04/13/20 Melatonin 10 mg PO HS 04/13/20 04/13/20 Venlafaxine HCl [Effexor XR] 150 mg PO HS 04/13/20 04/13/20 Allergies Allergy/AdvReac Type Severity Reaction Status Date / Time aspirin AdvReac BLOOD TOO Verified 04/13/20 23:39 THIN Review of Systems ROS Statement: Those systems with pertinent positive or pertinent negative responses have been documented in the HPI. ROS Other: All systems not noted in ROS Statement are negative. Constitutional: Denies: fever, chills Respiratory: Denies: cough, dyspnea Cardiovascular: Denies: chest pain, palpitations Gastrointestinal: Denies: abdominal pain, vomiting, diarrhea Genitourinary: Denies: dysuria, hematuria Musculoskeletal: Denies: back pain Neurological: Denies: headache Psychiatric: Reports: depression, suicidal thoughts. Denies: auditory hallu cinations, visual hallucinations, homicidal thoughts Past Medical History Past Medical History: Diabetes Mellitus, Sleep Apnea/CPAP/BIPAP Additional Past Medical History / Comment(s): UMBILICAL HERNIA, RESTLESS LEG, HX OF BLOOD DISORDER DX AT AGE 17-not sure what was called, had to do w/platelets, states was tested @age 26 & didn't have, has never had any problems w/bleeding or clotting w/surgeries, low back pain and bilateral knee pain and left hip stiffness, uses CPAP History of Any Multi-Drug Resistant Organisms: None Reported Past Surgical History: Bariatric Surgery, Section, Cholecystectomy, Hernia Repair, Tubal Ligation Additional Past Surgical History / Comment(s): D&C, cyst removed from R groin, gastric sleeve Past Anesthesia/Blood Transfusion Reactions: No Reported Reaction Past Psychological History: Anxiety, Bipolar, Depression Smoking Status: Current every day smoker Past Alcohol Use History: None Reported Past Drug Use History: None Reported - Past Family History Father Family Medical History: Congestive Heart Failure (CHF), Hypertension Additional Family Medical History / Comment(s): kidney failure Mother Family Medical History: Cancer, Myocardial Infarction ([place]) Additional Family Medical History / Comment(s): LUNG, from cancer General Exam Limitations: no limitations General appearance: alert, in no apparent distress Head exam: Present: atraumatic, normocephalic Eye exam: Present: normal appearance. Absent: scleral icterus, conjunctival injection Respiratory exam: Present: normal lung sounds bilaterally. Absent: respiratory distress, wheezes, rales, rhonchi, stridor Cardiovascular Exam: Present: regular rate, normal rhythm, normal heart sounds. Absent: systolic murmur, diastolic murmur, rubs, gallop GI/Abdominal exam: Present: soft. Absent: distended, tenderness, guarding, rebound, rigid, mass Extremities exam: Present: normal inspection, normal capillary refill. Absent: pedal edema, calf tenderness Back exam: Present: normal inspection Neurological exam: Present: alert Psychiatric exam: Present: depressed, suicidal ideation. Absent: agitated, anxious, flat affect, manic, homicidal ideation Skin exam: Present: warm, dry, intact, normal color. Absent: rash Course Vital Signs 04/13/20 04/14/20 04/14/20 22:51 03:20 12:34 Temperature 98.6 F 97.8 F Pulse Rate 117 H 100 86 Respiratory 18 17 18 Rate Blood Pressure 140/83 136/79 110/75 O2 Sat by Pulse 96 97 99 Oximetry Medical Decision Making - Lab Data Result diagrams: 04/14/20 01:30 04/14/20 01:30 Lab Results 04/14/20 04/14/20 04/14/20 Range/Units 00:11 01:24 01:24 WBC (3.8-10.6) k/uL RBC (3.80-5.40) m/uL Hgb (11.4-16.0) gm/dL Hct (34.0-46.0) % MCV (80.0-100.0) fL MCH (25.0-35.0) pg MCHC (31.0-37.0) g/dL RDW (11.5-15.5) % Plt Count (150-450) k/uL Neutrophils % % Lymphocytes % % Monocytes % % Eosinophils % % Basophils % % Neutrophils # (1.3-7.7) k/uL Lymphocytes # (1.0-4.8) k/uL Monocytes # (0-1.0) k/uL Eosinophils # (0-0.7) k/uL Basophils # (0-0.2) k/uL Hypochromasia Anisocytosis Microcytosis Sodium (137-145) mmol/L Potassium (3.5-5.1) mmol/L Chloride (98-107) mmol/L Carbon Dioxide (22-30) mmol/L Anion Gap mmol/L BUN (7-17) mg/dL Creatinine (0.52-1.04) mg/dL Est GFR (CKD-EPI)AfAm (>60 ml/min/1.73 sqM) Est GFR (CKD-EPI)NonAf (>60 ml/min/1.73 sqM) Glucose (74-99) mg/dL Calcium (8.4-10.2) mg/dL Total Bilirubin (0.2-1.3) mg/dL AST (14-36) U/L ALT (4-34) U/L Alkaline Phosphatase (38-126) U/L Total Protein (6.3-8.2) g/dL Albumin (3.5-5.0) g/dL Urine Color Yellow Urine Appearance Clear (Clear) Urine pH 7.5 (5.0-8.0) Ur Specific [place] 1.027 (1.001-1.035) Urine Protein Negative (Negative) Urine Glucose (UA) Negative (Negative) Urine Ketones Negative (Negative) Urine Blood Negative (Negative) Urine Nitrite Negative (Negative) Urine Bilirubin Negative (Negative) Urine Urobilinogen 3.0 (<2.0) mg/dL Ur Leukocyte Esterase Negative (Negative) Urine HCG, Qual Not Detected (Not Detectd) Urine Opiates Screen Not Detected (NotDetected) Ur Oxycodone Screen Not Detected (NotDetected) Urine Methadone Screen Not Detected (NotDetected) Ur Propoxyphene Screen Not Detected (NotDetected) Ur Barbiturates Screen Not Detected (NotDetected) U Tricyclic Antidepress Not Detected (NotDetected) Ur Phencyclidine Scrn Not Detected (NotDetected) Ur Amphetamines Screen Not Detected (NotDetected) U Methamphetamines Scrn Not Detected (NotDetected) U Benzodiazepines Scrn Detected H (NotDetected) Urine Cocaine Screen Not Detected (NotDetected) U Marijuana (THC) Screen Not Detected (NotDetected) Coronavirus (PCR) (Not Detected) 04/14/20 04/14/20 04/14/20 Range/Units 01:30 01:30 01:35 WBC 8.5 (3.8-10.6) k/uL RBC 4.22 (3.80-5.40) m/uL Hgb 9.2 L (11.4-16.0) gm/dL Hct 30.4 L (34.0-46.0) % MCV 72.0 L (80.0-100.0) fL MCH 21.7 L (25.0-35.0) pg MCHC 30.2 L (31.0-37.0) g/dL RDW 17.0 H (11.5-15.5) % Plt Count 264 (150-450) k/uL Neutrophils % 50 % Lymphocytes % 39 % Monocytes % 5 % Eosinophils % 3 % Basophils % 0 % Neutrophils # 4.3 (1.3-7.7) k/uL Lymphocytes # 3.3 (1.0-4.8) k/uL Monocytes # 0.5 (0-1.0) k/uL Eosinophils # 0.2 (0-0.7) k/uL Basophils # 0.0 (0-0.2) k/uL Hypochromasia Marked Anisocytosis Slight Microcytosis Moderate Sodium 138 (137-145) mmol/L Potassium 4.0 (3.5-5.1) mmol/L Chloride 107 (98-107) mmol/L Carbon Dioxide 25 (22-30) mmol/L Anion Gap 6 mmol/L BUN 24 H (7-17) mg/dL Creatinine 0.66 (0.52-1.04) mg/dL Est GFR (CKD-EPI)AfAm >90 (>60 ml/min/1.73 sqM) Est GFR (CKD-EPI)NonAf >90 (>60 ml/min/1.73 sqM) Glucose 96 (74-99) mg/dL Calcium 8.6 (8.4-10.2) mg/dL Total Bilirubin 0.2 (0.2-1.3) mg/dL AST 17 (14-36) U/L ALT 10 (4-34) U/L Alkaline Phosphatase 64 (38-126) U/L Total Protein 6.3 (6.3-8.2) g/dL Albumin 3.9 (3.5-5.0) g/dL Urine Color Urine Appearance (Clear) Urine pH (5.0-8.0) Ur Specific [place] (1.001-1.035) Urine Protein (Negative) Urine Glucose (UA) (Negative) Urine Ketones (Negative) Urine Blood (Negative) Urine Nitrite (Negative) Urine Bilirubin (Negative) Urine Urobilinogen (<2.0) mg/dL Ur Leukocyte Esterase (Negative) Urine HCG, Qual (Not Detectd) Urine Opiates Screen (NotDetected) Ur Oxycodone Screen (NotDetected) Urine Methadone Screen (NotDetected) Ur Propoxyphene Screen (NotDetected) Ur Barbiturates Screen (NotDetected) U Tricyclic Antidepress (NotDetected) Ur Phencyclidine Scrn (NotDetected) Ur Amphetamines Screen (NotDetected) U Methamphetamines Scrn (NotDetected) U Benzodiazepines Scrn (NotDetected) Urine Cocaine Screen (NotDetected) U Marijuana (THC) Screen (NotDetected) Coronavirus (PCR) Not Detected (Not Detected) Disposition Clinical Impression: Mood disorder Disposition: OTHER INSTITUTION NOT DEFINED Condition: Fair Is patient prescribed a controlled substance at d/c from ED?: No Referrals: Valentín Sharif MD [Primary Care Provider] - 1-2 days - Out of Hospital Transfer - Req. Specs Out of Hospital Transfer - Requested Specifics: Psychiatric Non-ICU ([facility])
[2020-04-14 00:34] LABS: Amphetamine Screen,Urine Not Detected (NotDetected); Barbiturate Screen,Urine Not Detected (NotDetected); Benzodiazepines Screen,Urine Detected (NotDetected); Cocaine Screen,Urine Not Detected (NotDetected); Methadone Screen, Urine Not Detected (NotDetected); Opiate Screen,Urine Not Detected (NotDetected); Oxycodone Screen, Urine Not Detected (NotDetected); Phencyclidine Screen,Urine Not Detected (NotDetected); Tricyclic Antidepressant,Urine Not Detected (NotDetected); Urn Cannabinoid Scrn Not Detected (NotDetected)
[2020-04-14 01:37] LABS: Anisocytosis Slight; Basophils % (A) 0 %; Eosinophils # (A) 0.2 k/uL (0-0.7); Eosinophils % (A) 3 %; HCT 30.4 % (34.0-46.0); HGB 9.2 gm/dL (11.4-16.0); Hypochromasia Marked; Lymphocytes # (A) 3.3 k/uL (1.0-4.8); Lymphocytes % (A) 39 %; MCH 21.7 pg (25.0-35.0); MCHC 30.2 g/dL (31.0-37.0); Mean Platelet Volume 9.4; Microcytosis Moderate; Monocytes # (A) 0.5 k/uL (0-1.0); Monocytes % (A) 5 %; Neutrophils # (A) 4.3 k/uL (1.3-7.7); Neutrophils % (A) 50 %; Platelet Count 264 k/uL (150-450); RBC 4.22 m/uL (3.80-5.40); WBC 8.5 k/uL (3.8-10.6)
[2020-04-14 01:39] LABS: Appearance,Urine Clear (Clear); Bilirubin,Urine Negative (Negative); Blood,Urine Negative (Negative); Color,Urine Yellow; Glucose,Urine (UA) Negative (Negative); Ketones,Urine Negative (Negative); Leukocyte Esterase,Urine Negative (Negative); Nitrite,Urine Negative (Negative); PH, Urine 7.5 (5.0-8.0); Protein,Urine Negative (Negative); Specific Gravity,Urine 1.027 (1.001-1.035)
[2020-04-14 01:52] LABS: ALT 10 U/L (4-34); AST 17 U/L (14-36); African American GFR (CKD) >90 (>60 ml/min/1.73 sqM); Albumin 3.9 g/dL (3.5-5.0); Alkaline Phosphatase 64 U/L (38-126); Anion Gap 6 mmol/L; Blood Urea Nitrogen 24 mg/dL (7-17); Calcium 8.6 mg/dL (8.4-10.2); Carbon Dioxide 25 mmol/L (22-30); Chloride 107 mmol/L (98-107); Glucose 96 mg/dL (74-99); Non-African American GFR(CKD) >90 (>60 ml/min/1.73 sqM); Sodium 138 mmol/L (137-145); Total Bilirubin 0.2 mg/dL (0.2-1.3); Total Protein 6.3 g/dL (6.3-8.2)
[2020-04-14 12:35] VITALS: BP 110/75; PULSE 86; RESP 18; TEMP 97.8
== END 2020-04-14 13:10 | disposition other institution (70) ==
LOC: EC 22:50
DX: F39 Unspecified mood [affective] disorder (principal); R45.851 Suicidal ideations; F17.200 Nicotine dependence, unspecified, uncomplicated; F31.9 Bipolar disorder, unspecified; F41.9 Anxiety disorder, unspecified; G47.30 Sleep apnea, unspecified; Z88.6 Allergy status to analgesic agent; Z99.89 Dependence on other enabling machines and devices; Z03.818 Encounter for observation for suspected exposure to other biological agents ruled out
CPT/HCPCS: 82075; 36415; 80053; 85025; 81003; 81025; 80306; 99285; U0003; 99283

== ENCOUNTER → 2022-03-02 | Outpatient (CLI) | payer BC ==
--- NOTE | 2022-03-02 12:21 | CT ---
EXAMINATION TYPE: CT abdomen pelvis w con DATE OF EXAM: 03/02/2022 COMPARISON: CT dated 02/25/2015 HISTORY: Gastric bypass done in 2016. Abdominal pain after eating. Diverticulitis. CT DLP: 1057.1 mGycm Automated exposure control for dose reduction was used. TECHNIQUE: Helical acquisition of images was performed from the lung bases through the pelvis. CONTRAST: Performed with Oral Contrast and with IV Contrast, patient injected with 100 ML mL of Isovue 300. FINDINGS: LUNG BASES: No significant abnormality is appreciated. LIVER/GB: Previous cholecystectomy. No definite hepatic focal lesion. PANCREAS: No significant abnormality is seen. SPLEEN: No significant abnormality is seen. ADRENALS: Thickened slightly nodular adrenals, appreciated previously. KIDNEYS: Scattered bilateral renal hypodensities likely representing renal cysts. 3 mm left mid pole nonobstructing renal calculus. FREE AIR: No free air is visualized. RETROPERITONEAL ADENOPATHY: None visualized REPRODUCTIVE ORGANS: No gross uterine mass. Left ovarian follicle/cyst measuring up to 4.3 cm, subopt imally assessed by this CT scan and could be normal for the patient's age. Further pelvic ultrasound assessment can be considered. No right adnexal mass. URINARY BLADDER: No significant abnormality is seen. PELVIC ADENOPATHY: No pathologically enlarged pelvic lymph nodes. OSSEOUS STRUCTURES: No aggressive bone lesion. BOWEL: Small sliding hiatal hernia with suspected previous gastric surgery. Multiple variable sized duodenal diverticula. Unremarkable small bowel. Scattered uncomplicated colonic diverticulosis with m ild wall thickening of the transverse colon and right hemicolon, chronic colitis cannot be excluded, please correlate clinically. Normal appendix. OTHER: No sizable ascites. IMPRESSION: Colonic diverticulosis without evidence of acute diverticulitis. Mild wall thickening of segments of the colon, mild chronic colitis cannot be excluded, please correlate clinically and with stool analys is results. Further GI consultation can be considered. Other incidental findings as described above.
--- NOTE | 2022-03-02 14:41 | FL ---
EXAMINATION TYPE: FL barium swallow DATE OF EXAM: 03/02/2022 COMPARISON: None HISTORY: Dysphagia, reflux medications TECHNIQUE: A single contrast UGI study is performed. Patient is status post gastric sleeve. FINDINGS: Contrast passes from the distal esophagus through the gastroesophageal junction without hes itancy. No secondary or tertiary contractions are identified. There is complete stripping of the esophageal b olus in the horizontal drinking position. No intraluminal or extramural defects are evident. Overhead radiographs were obtained which are unremarkable. IMPRESSIONS: 1. Normal single contrast esophagram.
== END | disposition home or self-care (01) ==
LOC: RADCTMAIN 09:07
PROVIDERS: ATTEND Surgery Plastic and Reconstructive Surgery
DX: K57.92 Diverticulitis of intestine, part unspecified, without perforation or abscess without bleeding (principal); R13.10 Dysphagia, unspecified
CPT/HCPCS: 74220; 74177; Q9967

== ENCOUNTER 2022-03-28 06:16 | Day surgery (SDC) | payer BC ==
[2022-03-28] MEDS ORDERED: LACTATED RINGERS 1,000 ML IV SCH (06:24)
[2022-03-28 06:54] VITALS: TEMP 97.7
--- NOTE | 2022-03-28 07:21 | P.GSHP ---
History of Present Illness H&P Date: 03/28/22 CHIEF COMPLAINT: GERD and colon screen HISTORY OF PRESENT ILLNESS: The patient is a 47-year-old female who presents with gastroesophageal reflux disease and need for colon screen. Upper and lower endoscopy were offered for further evaluation and management. PAST MEDICAL HISTORY: Please see list. PAST SURGICAL HISTORY: Please see list. MEDICATIONS: Please see list. ALLERGIES: Please see list. SOCIAL HISTORY: No illicit drug use FAMILY HISTORY: No reports of Crohn disease or ulcerative colitis. REVIEW OF ORGAN SYSTEMS: CONSTITUTIONAL: No reports of fevers or chills. GI: Denies any blood in stools or constipation. PHYSICAL EXAM: VITAL SIGNS: Stable GENERAL: Well-developed pleasant in no acute distress. HEENT: No scleral icterus. Extraocular movements grossly intact. Moist buccal mucosa. NECK: Supple without lymphadenopathy. CHEST: Unlabored respirations. Equal bilateral excursions. CARDIOVASCULAR: Regular rate and rhythm. Distal 2+ pulses. ABDOMEN: Soft, nondistended. MUSCULOSKELETAL: No clubbing, cyanosis, or edema. ASSESSMENT: 1. Gastroesophageal reflux disease 2. Colon screen. PLAN: 1. Recommend proceeding with an upper and lower endoscopy Past Medical History Past Medical History: Diabetes Mellitus, GERD/Reflux, Sleep Apnea/CPAP/BIPAP Additional Past Medical History / Comment(s): UMBILICAL HERNIA, RESTLESS LEG, HX OF BLOOD DISORDER DX AT AGE 17-not sure what was called, had to do w/platelets, states was tested @age 26 & didn't have, has never had any problems w/bleeding or clotting w/surgeries, low back pain and bilateral knee pain and left hip stiffness, uses CPAP, DIET CONTROL DIABETES History of Any Multi-Drug Resistant Organisms: None Reported Past Surgical History: Bariatric Surgery, Section, Cholecystectomy, Hernia Repair, Tubal Ligation Additional Past Surgical History / Comment(s): D&C, cyst removed from R groin, gastric sleeve, Past Anesthesia/Blood Transfusion Reactions: No Reported Reaction Smoking Status: Former smoker - Past Family History Father Family Medical History: Congestive Heart Failure (CHF), Hypertension Additional Family Medical History / Comment(s): kidney failure Mother Family Medical History: Cancer, Myocardial Infarction ([place]) Additional Family Medical History / Comment(s): LUNG, from cancer Medications and Allergies Home Medications Medication Instructions Recorded Confirmed Type Ferrous Sulfate [Iron] 325 mg PO DAILY 02/16/22 03/28/22 History Multivitamins, Thera [Multivitamin 1 tab PO DAILY 02/16/22 03/28/22 History (formulary)] Pantoprazole Sodium 40 mg PO DAILY 02/16/22 03/28/22 History Allergies Allergy/AdvReac Type Severity Reaction Status Date / Time aspirin AdvReac BLOOD TOO Verified 03/28/22 06:55 THIN Surgical - Exam Vital Signs Temp Pulse Resp BP Pulse Ox 97.7 F 109 H 18 125/87 99 03/28/22 06:53 03/28/22 06:53 03/28/22 06:53 03/28/22 06:53 03/28/22 06:53
[2022-03-28] MEDS ORDERED: LIDOCAINE 2% INJ 20 MG/ML (2 ML VIAL) ONE (07:23)
[2022-03-28] MEDS ORDERED: PROPOFOL 10 MG/ML 20 ML VIAL IV ONE (07:23)
--- NOTE | 2022-03-28 07:38 | P.PCN ---
Date of Procedure: 03/28/22 Description of Procedure: PREOPERATIVE DIAGNOSIS: Status post sleeve gastrectomy. Gastroesophageal reflux disease. Epigastric abdominal pain. POSTOPERATIVE DIAGNOSIS: Status post sleeve gastrectomy. Gastroesophageal reflux disease. Epigastric abdominal pain. Erosive esophagitis, chronic. Diaphragmatic hiatal hernia without obstruction. Chronic superficial gastritis. Duodenitis OPERATION: Esophagogastroduodenoscopy with cold forceps biopsies along the antrum, distal esophagus, duodenum SURGEON: Anne Marie Barker MD ANESTHESIA: MAC. INDICATIONS: The patient is a 47-year-old female who presents with a history of sleeve gastrectomy with abdominal pain. She is over 3 years out from her bariatric procedure. Benefits and risks of the procedure were described. Informed consent was obtained. DESCRIPTION: The patient was brought into the endoscopy suite and laid in the left lateral decubitus position. An Olympus gastroscope was passed along the posterior oropharynx down to the distal esophagus where the squamocolumnar junction was at 39 centimeters from the incisors remarkable for chronic erosive esophagitis, LA grade A without ulceration. The stomach was entered where she had a 2-cm hiatal hernia with a diaphragmatic hiatus found at 43 cm. The sleeve reservoir was dilated allowing easy retroflexion of the scope to view the lower esophageal valve. Chronic gastritis albeit mild was found along the antrum with cold biopsies obtained. The first through third portion of the duodenum was examined with biopsies obtained. The scope again had easily retroflexed along the antrum. The stomach was desufflated. The patient tolerated the procedure well. FINDINGS: No acute ulceration found along her sleeve. No corkscrewing sleeve gastrectomy. Squamocolumnar junction at 39 cm from the incisors. Diaphragmatic hiatus at 41 cm. Dilated gastric reservoir with prior history of sleeve gastrectomy allowing easy retroflexion of the gastroscope to view the lower esophageal valve. Hiatal hernia 2 cm, sliding type LA grade B erosive esophagitis. Biopsies obtained for duodenitis. Chronic gastritis. RECOMMENDATIONS: Upper endoscopy as needed. May benefit from antireflux operation. Omeprazole 40 mg daily
--- NOTE | 2022-03-28 07:53 | P.PCN ---
Date of Procedure: 03/28/22 Description of Procedure: PREOPERATIVE DIAGNOSIS: Colonoscopy screening. Family history of gastrointestinal POSTOPERATIVE DIAGNOSIS: Colonoscopy screening. Diverticulosis, scattered. Arteriovenous malformation of the ascending colon OPERATION: Colonoscopy to the cecum, ileocecal valve and appendiceal orifice. SURGEON: Anne Marie Barker MD. ANESTHESIA: MAC. INDICATIONS: The patient is a 47-year-old female who presents for colonoscopy screening. Benefits and risks were described and informed consent was obtained. DESCRIPTION OF PROCEDURE: The patient had undergone Sutab prep. The patient had been brought into the operating room and laid in the left lateral decubitus position. After adequate intravenous sedation, the rectum was examined with 2% lidocaine jelly. No external hemorrhoids were encountered. The rectal tone was within normal limits. No lesions were palpated in the rectal vault. An Olympus colonoscope was advanced until the cecum, ileocecal valve and appendiceal orifice were clearly viewed. The prep was good. Scattered sigmoid diverticulosis was encountered. No colonic polyps were found. No evidence of focal colitis was found. Retroflexion of the scope demonstrated grade 1 internal hemorrhoids without active bleeding or inflammation. The colon was desufflated. The patient had tolerated the procedure well. Withdrawal time was over 6 minutes. FINDINGS: Aronchick preparation quality scale 2 (1-5) Internal hemorrhoids, grade 1 No external prolapsed hemorrhoids. Arteriovenous malformation, 4 mm of the ascending colon without bleeding No adenomatous polyps. No focal colitis. Sigmoid scattered diverticulosis RECOMMENDATIONS: Lower endoscopy in 5 2026 due to elevated familial risk Plan - Discharge Summary Discharge Rx Participant: No New Discharge Prescriptions: Continue Ferrous Sulfate [Iron] 325 mg PO DAILY Multivitamins, Thera [Multivitamin (formulary)] 1 tab PO DAILY Pantoprazole Sodium 40 mg PO DAILY Discharge Medication List Ferrous Sulfate [Iron] 325 mg PO DAILY 02/16/22 [History] Multivitamins, Thera [Multivitamin (formulary)] 1 tab PO DAILY 02/16/22 [History] Pantoprazole Sodium 40 mg PO DAILY 02/16/22 [History] [facility] [facility] [place] [facility] [place] [facility] Patient Instructions/Handouts: Diverticulosis Diet (GEN), Diverticulosis (DC), Hiatal Hernia (DC) Activity/Diet/Wound Care/Special Instructions: Repeat colonoscopy in 5 years, 2026 Discharge Disposition: HOME SELF-CARE
[2022-03-28 08:09] VITALS: BP 122/85; PULSE 104; RESP 18
== END 2022-03-28 08:48 | disposition home or self-care (01) ==
LOC: ORWHC2ENDO 06:16
PROVIDERS: ATTEND Surgery Plastic and Reconstructive Surgery
DX: K57.30 Diverticulosis of large intestine without perforation or abscess without bleeding (principal); K64.0 First degree hemorrhoids; Q27.39 Arteriovenous malformation, other site; K44.9 Diaphragmatic hernia without obstruction or gangrene; K22.10 Ulcer of esophagus without bleeding; K29.80 Duodenitis without bleeding; K29.50 Unspecified chronic gastritis without bleeding; E11.9 Type 2 diabetes mellitus without complications; K21.9 Gastro-esophageal reflux disease without esophagitis; G47.33 Obstructive sleep apnea (adult) (pediatric); G25.81 Restless legs syndrome; K42.9 Umbilical hernia without obstruction or gangrene; Z98.84 Bariatric surgery status; Z90.49 Acquired absence of other specified parts of digestive tract; Z98.51 Tubal ligation status; Z87.891 Personal history of nicotine dependence; Z82.49 Family history of ischemic heart disease and other diseases of the circulatory system; Z80.1 Family history of malignant neoplasm of trachea, bronchus and lung; Z79.899 Other long term (current) drug therapy; Z88.6 Allergy status to analgesic agent
CPT/HCPCS: 81025; 88305; 43239; J2704; J2001; G0121

== ENCOUNTER → 2022-04-13 | Outpatient (CLI) | payer BC ==
[2022-04-13 14:31] VITALS: BP 136/78; PULSE 69; TEMP 98.2
--- NOTE | 2022-04-13 15:13 | P.BASOAP ---
Subjective Progress Note Date: 04/13/22 All labs reviewed. Doing well with Protonix. Hiatal hernia but needs to stop smoking. CT scan. Objective - Vital Signs Vital signs: Vital Signs Temp 98.2 F 04/13/22 14:27 Pulse 69 04/13/22 14:27 Resp BP 136/78 04/13/22 14:27 Pulse Ox FiO2 Intake & Output 04/12/22 04/13/22 04/13/22 18:59 06:59 18:59 Weight 79.379 kg Assessment/Plan Plan: Date: 04/13/22 Initial Weight: 110.722 kg Initial BMI: 41.8 Current Weight: 79.379 kg Current BMI: 30.0 Type of Surgery: Total Volume in Band: Previous Volume: Volume Removed: Volume Added: Band Size:
== END | disposition home or self-care (01) ==
LOC: BARWHC3 14:00
PROVIDERS: ATTEND Surgery Plastic and Reconstructive Surgery
DX: K44.9 Diaphragmatic hernia without obstruction or gangrene (principal)
CPT/HCPCS: 99211

== ENCOUNTER → 2023-10-25 | Outpatient (CLI) | payer BC ==
[2023-10-25 15:17] LABS: ALT 11 U/L (8-44); AST 14 U/L (13-35); Albumin 4.4 g/dL (3.8-4.9); Albumin/Globulin Ratio 1.91 Ratio (1.60-3.17); Alkaline Phosphatase 63 U/L (41-126); BUN/Creat Ratio 22.56 Ratio (12.00-20.00); Bilirubin, Conjugated <0.20 mg/dL (0.20-0.40); Bilirubin,Unconjugated >0.20 mg/dL (0.20-1.00); Blood Urea Nitrogen 20.3 mg/dL (9.0-27.0); Calcium 9.5 mg/dL (8.7-10.3); Carbon Dioxide 28.3 mmol/L (21.6-31.8); Chloride 103 mmol/L (96-109); Globulin 2.3 g/dL (1.6-3.3); Glucose 103 mg/dL (70-110); Potassium 4.1 mmol/L (3.5-5.5); Sodium 143 mmol/L (135-145); Total Bilirubin 0.4 mg/dL (0.3-1.2); Total Protein 6.7 g/dL (6.2-8.2)
[2023-10-25 15:29] LABS: HGB 13.5 g/dL (12.0-15.0); MCH 28.9 pg (27.0-32.0); MCHC 32.1 g/dL (32.0-37.0); MCV 89.9 FL (80.0-97.0); NRBC Per 100 WBC 0 X 10*3/uL (0.00-0.01); Platelet Count 221 X 10*3/uL (140-440); RBC 4.67 X 10*6/uL (4.10-5.20); RDW 13.4 % (11.5-14.5); WBC 6.67 X 10*3/uL (4.50-10.00)
== END | disposition home or self-care (01) ==
LOC: LABWHC1 07:18
DX: Z51.81 Encounter for therapeutic drug level monitoring (principal); F31.81 Bipolar II disorder
CPT/HCPCS: 36415; 80048; 80076; 80175; 83036; 84443; 85027

== ENCOUNTER → 2024-01-31 | Outpatient (CLI) | payer BC ==
[2024-01-31 14:43] VITALS: BP 110/74; PULSE 83; RESP 16; TEMP 98; BMI 26.0
--- NOTE | 2024-01-31 15:08 | P.BASOAP ---
Subjective Progress Note Date: 01/31/24 Highest is 258 pounds. 100 pound weight loss. She lost another 20 pounds in 2 years. She is reading bariatric kitchen and menus for weight loss. She has the sleeve. Back trouble with skin. Has troubles wth grooming of her hanging skin. She has itching of the skin and pannus. Need 6 months. She is still smoking. Needs urine nictone. Send nystatin. Has 6 cm, pannus grad 3, 10 pounds. NO back folds and all anterior. Objective - Vital Signs Vital signs: Vital Signs Temp 98 F 01/31/24 14:23 Pulse 83 01/31/24 14:23 Resp 16 01/31/24 14:23 BP 110/74 01/31/24 14:23 Pulse Ox FiO2 Intake & Output 01/30/24 01/31/24 01/31/24 18:59 06:59 18:59 Weight 69.853 kg Assessment/Plan Plan: Date: 01/31/24 Initial Weight: 110.722 kg Initial BMI: 41.2 Current Weight: 69.853 kg Current BMI: 26.0 Type of Surgery: Vertical Sleeve Gastrectomy Total Volume in Band: Previous Volume: Volume Removed: Volume Added: Band Size:
== END ==
LOC: BARWHC3 13:08
PROVIDERS: ATTEND Surgery Plastic and Reconstructive Surgery
DX: E66.01 Morbid (severe) obesity due to excess calories (principal); L29.9 Pruritus, unspecified; F17.200 Nicotine dependence, unspecified, uncomplicated; Z98.84 Bariatric surgery status; Z90.3 Acquired absence of stomach [part of]; Z88.6 Allergy status to analgesic agent; Z68.26 Body mass index [BMI] 26.0-26.9, adult
CPT/HCPCS: 99211

== ENCOUNTER → 2024-03-21 | Outpatient (CLI) | payer BC ==
[2024-03-21 09:44] LABS: INR 0.9 (<1.2); Partial Thromboplastin Time 24.4 sec (22.0-30.0); Prothrombin Time 10.2 sec (10.0-12.5)
[2024-03-21 15:39] LABS: HCT 41.5 % (37.2-46.3); HGB 12.9 g/dL (12.0-15.0); MCH 28.2 pg (27.0-32.0); MCHC 31.1 g/dL (32.0-37.0); MCV 90.6 FL (80.0-97.0); Mean Platelet Volume 11.3 FL (9.5-12.2); NRBC Per 100 WBC 0 X 10*3/uL (0.00-0.01); Platelet Count 208 X 10*3/uL (140-440); RBC 4.58 X 10*6/uL (4.10-5.20); RDW 14.2 % (11.5-14.5); WBC 5.23 X 10*3/uL (4.50-10.00)
[2024-03-21 16:29] LABS: Prealbumin 21.1 mg/dL (18.0-42.0)
[2024-03-21 17:58] LABS: % Iron Saturation 25.95 (12.00-45.00); ALT 12 U/L (8-44); AST 13 U/L (13-35); Albumin 4.5 g/dL (3.8-4.9); Albumin/Globulin Ratio 2.14 Ratio (1.60-3.17); Alkaline Phosphatase 61 U/L (41-126); Blood Urea Nitrogen 17.5 mg/dL (9.0-27.0); Calcium 9.1 mg/dL (8.7-10.3); Carbon Dioxide 23.8 mmol/L (21.6-31.8); Chloride 109 mmol/L (96-109); Chol/HDL Ratio 2.66 Ratio; Ferritin 41.7 ng/mL (10.0-291.0); Globulin 2.1 g/dL (1.6-3.3); Glucose 99 mg/dL (70-110); Iron 102 UG/DL (50-170); LDL Cholesterol,Calculated 124.3 mg/dL (0.0-131.0); Phosphorus 3.7 mg/dL (2.4-5.1); Potassium 4.7 mmol/L (3.5-5.5); Sodium 147 mmol/L (135-145); Total Bilirubin 0.4 mg/dL (0.3-1.2); Total Iron Binding Capacity 393 UG/DL (228-460); Total Protein 6.6 g/dL (6.2-8.2); VLDL Calculation 10.54 mg/dL (5.00-40.00)
[2024-03-22 13:58] LABS: Zinc, Serum 87 ug/dL (60-130)
[2024-03-23 10:14] LABS: Anabasine Urine <2.0 ng/mL (<2.0)
== END | disposition home or self-care (01) ==
LOC: LABWHC1 08:59
PROVIDERS: ATTEND Surgery Plastic and Reconstructive Surgery
DX: E66.01 Morbid (severe) obesity due to excess calories (principal); E89.1 Postprocedural hypoinsulinemia; D50.8 Other iron deficiency anemias; E44.1 Mild protein-calorie malnutrition; E44.0 Moderate protein-calorie malnutrition; E55.9 Vitamin D deficiency, unspecified; K74.1 Hepatic sclerosis; N19 Unspecified kidney failure; T56.894A Toxic effect of other metals, undetermined, initial encounter
CPT/HCPCS: 36415; 80053; 80061; 80307; 80323; 82306; 82525; 82607; 82728; 82746; 83036; 83540; 83550; 83735; 83970; 84100; 84134; 84255; 84425; 84443; 84590; 84630; 85027; 85610; 85730

== ENCOUNTER 2025-04-22 14:54 | Emergency (ER) | payer OTHER, BC ==
[2025-04-22 15:00] VITALS: TEMP 98.2
[2025-04-22] MEDS ORDERED: FLUORESCEIN STRIPS 1 MG STRIP RIGHT EYE ONE (16:20)
[2025-04-22] MEDS: FLUORESCEIN STRIPS 1 MG STRIP RIGHT EYE ONE (17:02)
[2025-04-22] MEDS: PROPARACAINE 0.5% OPHTH DROPS 15 ML BTL LEFT EYE STA (17:02)
--- NOTE | 2025-04-22 17:03 | ED ---
General Adult HPI - General Chief complaint: Skin/Abscess/Foreign Body Stated complaint: [facility]-Chemial rxn on face Time Seen by Provider: 04/22/25 16:06 Source: patient, RN notes reviewed Mode of arrival: ambulatory Limitations: no limitations - History of Present Illness Initial comments: 50-year-old female presents to the emergency department for evaluation of potential chemical burn to her face. Patient states that she noticed some areas on her left scalp and the tip of her nose starting on Monday. Patient believes that she potentially rubbed her face with a dirty glove while she was at work. She was working with loctite, mobil grease, and [employer] titan oil. She is unsure when she may have done this. She notes she went to [facility] and was sent to the emergency department for further evaluation as she has redness to her left eye. She denies any vision changes. She does note itching and irritation to the eye. She also endorses that some of the sores are painful. - Related Data Home Medications Medication Instructions Recorded Confirmed ARIPiprazole [Abilify] 5 mg PO HS 04/22/25 04/22/25 Atorvastatin [Lipitor] 10 mg PO HS 04/22/25 04/22/25 busPIRone HCL [Buspar] 30 mg PO BID 04/22/25 04/22/25 lamoTRIgine [LaMICtal] 200 mg PO DAILY 04/22/25 04/22/25 traZODone HCL [Desyrel] 50 mg PO HS 04/22/25 04/22/25 Allergies Allergy/AdvReac Type Severity Reaction Status Date / Time aspirin AdvReac BLOOD TOO Verified 04/22/25 17:51 THIN Review of Systems ROS Statement: Those systems with pertinent positive or pertinent negative responses have been documented in the HPI. ROS Other: All systems not noted in ROS Statement are negative. Past Medical History Past Medical History: Diabetes Mellitus, Sleep Apnea/CPAP/BIPAP Additional Past Medical History / Comment(s): UMBILICAL HERNIA, RESTLESS LEG, HX OF BLOOD DISORDER DX AT AGE 17-not sure what was called, had to do w/platelets, states was tested @age 26 & didn't have, has never had any problems w/bleeding or clotting w/surgeries, low back pain and bilateral knee pain and left hip stiffness, uses CPAP History of Any Multi-Drug Resistant Organisms: None Reported Past Surgical History: Bariatric Surgery, Section, Cholecystectomy, Hernia Repair, Tubal Ligation Additional Past Surgical History / Comment(s): D&C, cyst removed from R groin, gastric sleeve Past Anesthesia/Blood Transfusion Reactions: No Reported Reaction Past Psychological History: Anxiety, Bipolar, Depression Smoking Status: Current every day smoker Past Alcohol Use History: Rare Past Drug Use History: None Reported - Past Family History Father Family Medical History: Congestive Heart Failure (CHF), Hypertension Additional Family Medical History / Comment(s): kidney failure Mother Family Medical History: Cancer, Myocardial Infarction ([place]) Additional Family Medical History / Comment(s): LUNG, from cancer General Exam Limitations: no limitations General appearance: alert, in no apparent distress Head exam: Present: atraumatic, normocephalic, normal inspection Eye exam: Present: conjunctival injection, other (No evidence of corneal abrasion on fluorescein staining, intraocular pressure 14 in the right eye, 11 in the left eye) ENT exam: Present: normal exam, mucous membranes moist Respiratory exam: Present: normal lung sounds bilaterally. Absent: respiratory distress, wheezes, rales, rhonchi, stridor Cardiovascular Exam: Present: regular rate, normal rhythm, normal heart sounds. Absent: systolic murmur, diastolic murmur, rubs, gallop, clicks Extremities exam: Present: normal inspection, full ROM, normal capillary refill. Absent: tenderness, pedal edema, joint swelling, calf tenderness Neurological exam: Present: alert, oriented X3, CN II-XII intact Psychiatric exam: Present: normal affect, normal mood Skin exam: Present: warm, dry, erythema (Erythematous lesion superior to the left eye, on the left nostril with overlying scabbing). Absent: intact, normal color Course Vital Signs 04/22/25 04/22/25 14:57 18:13 Temperature 98.2 F Pulse Rate 104 H 78 Respiratory 18 19 Rate Blood Pressure 111/77 136/61 O2 Sat by Pulse 95 99 Oximetry Medical Decision Making - Medical Decision Making Was pt. sent in by a medical professional or institution (, [facility], INSURANCE CLAIMS EXAMINER, urgent care, hospital, or jail...) When possible be specific @ -No Did you speak to anyone other than the patient for history (EMS, parent, family, police, friend...)? What history was obtained from this source @ -No Did you review nursing and triage notes (agree or disagree)? Why? @ -I reviewed and agree with nursing and triage notes Were old charts reviewed (outside hosp., previous admission, EMS record, old EKG, old radiological studies, urgent care reports/EKG's, jail records)? Report findings @ -No old charts were reviewed Differential Diagnosis (chest pain, altered mental status, abdominal pain women, abdominal pain men, vaginal bleeding, weakness, fever, dyspnea, syncope, headache, dizziness, GI bleed, back pain, seizure, CVA, palpatations, mental health, musculoskeletal)? @ -Contact dermatitis, shingles, atopic dermatitis, this list is not all inclusive EKG interpreted by me (3pts min.). @ -None X-rays interpreted by me (1pt min.). @ -None done CT interpreted by me (1pt min.). @ -None done U/S interpreted by me (1pt. min.). @ -None done What testing was considered but not performed or refused? (CT, X-rays, U/S, labs)? Why? @ -None What meds were considered but not given or refused? Why? @ -None Did you discuss the management of the patient with other professionals (professionals i.e. , PA, INSURANCE CLAIMS EXAMINER, lab, RT, psych nurse, director social, wildlife biologist, teacher, business liaison officer, case worker)? Give summary @ -No Was smoking cessation discussed for >3mins.? @ -No Was critical care preformed (if so, how long)? @ -No Were there social determinants of health that impacted care today? How? (Homelessness, low income, unemployed, alcoholism, drug addiction, transportation, low edu. Level, literacy, decrease access to med. care, detention, rehab)? @ -No Was there de-escalation of care discussed even if they declined (Discuss DNR or withdrawal of care, Hospice)? DNR status @ -No What co-morbidities impacted this encounter? (DM, HTN, Smoking, COPD, CAD, Cancer, CVA, ARF, Chemo, Hep., AIDS, mental health diagnosis, sleep apnea, morbid obesity)? @ -None Was patient admitted / discharged? Hospital course, mention meds given and route, prescriptions, significant lab abnormalities, going to OR and other pertinent info. @ -Discharge. Patient presented for potential chemical burn to her face. There is no obvious corneal abrasion or ulceration. Intraocular pressures within normal limits bilaterally. Visual acuity is appropriate. Patient will be discharged advised follow-up with ophthalmology. She is understanding agreeable plan. Patient stable at time of discharge. Case discussed with Dr. Garcia. Undiagnosed new problem with uncertain prognosis? @ -No Drug Therapy requiring intensive monitoring for toxicity (Heparin, Nitro, Insulin, Cardizem)? @ -No Were any procedures done? @ -No Diagnosis/symptom? @ -Contact dermatitis Acute, or Chronic, or Acute on Chronic? @ -Acute Uncomplicated (without systemic symptoms) or Complicated (systemic symptoms)? @ -Uncomplicated Side effects of treatment? @ -No Exacerbation, Progression, or Severe Exacerbation? @ -No Poses a threat to life or bodily function? How? (Chest pain, USA, PA, pneumonia, PE, COPD, DKA, ARF, appy, cholecystitis, CVA, Diverticulitis, Homicidal, Suicidal, threat to staff... and all critical care pts) @ -No Disposition Clinical Impression: Contact dermatitis Disposition: HOME SELF-CARE Condition: Stable Instructions (If sedation given, give patient instructions): [facility] (ED) Additional Instructions: Instill 2 eyedrops into the left eye every 6 hours. Please follow-up with ophthalmology. Return to the emergency department for new or worsening symptoms. Is patient prescribed a controlled substance at d/c from ED?: No Referrals: Nonstaff,Physician [Primary Care Provider] - 1-2 days North Harper MD [STAFF PHYSICIAN] - 1-2 days
[2025-04-22] MEDS: POLYMYXIN B-TRIMETHOPRIM SULF (10,000-1) OPHTH DROPS 10 ML BTL LEFT EYE STA (18:06)
[2025-04-22 18:17] VITALS: BP 136/61; PULSE 78; RESP 19
== END 2025-04-22 18:24 | disposition home or self-care (01) ==
LOC: EC 14:54
DX: L25.9 Unspecified contact dermatitis, unspecified cause (principal); F17.200 Nicotine dependence, unspecified, uncomplicated; Z88.6 Allergy status to analgesic agent
CPT/HCPCS: 99282